=== PATIENT | male | born 1940 | race Caucasian/White ===

== ENCOUNTER 2018-07-09 23:54 | Inpatient (IN) | payer MEDICARE ==
[2018-07-10 00:27] LABS: #Basophils 0.1 thou/uL (0.0-0.2); #Eosinphils 0.2 thou/uL (0.0-0.7); #Lymphocytes 3.9 thou/uL (1.20-3.40); #Monocytes 1.1 thou/uL (0.11-0.59); #Neutrophils 4.7 thou/uL (1.40-6.50); %Basophils 0.8 % (0.0-1.0); %Eosinophils 2.4 % (0.0-10.0); %Monocytes 10.4 % (0.0-10.0); %Neutrophils 47.3 % (42.0-75.0); Mean Corpuscular HGB CONC 32.8 g/dL (32.0-36.0); Mean Corpuscular Hemoglobin 30.5 pg (27.0-31.0); Mean Platelet Volume 6.7 fL (7.4-10.4); Platelet Count 247 thou/uL (130-400); RBC Distribution Width 12.7 % (11.5-14.5); Red Blood Cell (RBC) Count 3.61 mill/uL (4.70-6.10)
[2018-07-10 00:53] LABS: ALT (SGPT) 10 U/L (8-55); AST (SGOT) 11 U/L (5-34); Albumin 3.7 g/dL (3.4-4.8); Alkaline Phosphatase 85 U/L (40-150); Anion Gap 11 mmol/L (10-20); BUN (Urea Nitrogen) 28 mg/dL (8.4-25.7); Bilirubin, Total 0.5 mg/dL (0.2-1.2); Calc. Creatinine Clearance 0 mL/min (70-130); Calcium 9.5 mg/dL (7.8-10.44); Carbon Dioxide 27 mmol/L (23-31); Chloride 99 mmol/L (98-107); Estimated GFR-MDRD 51; Globulin 2.8 g/dL (2.4-3.5); Glucose 121 mg/dL (83-110); Potassium 4.2 mmol/L (3.5-5.1); Protein, Total 6.5 g/dL (5.8-8.1); Sodium 133 mmol/L (136-145)
[2018-07-10 01:14] LABS: CKMB 2.6 ng/mL (0-6.6)
[2018-07-10 01:27] LABS: Clarity Clear (Clear); Leukocyte Negative (Negative); Nitrite Negative (Negative); Specific Gravity, Urine 1.007 (1.002-1.036)
[2018-07-10 01:28] LABS: Bilirubin Negative (Negative); Blood, Urine Negative (Negative); Glucose, Urine (Dipstick) Negative (Negative); Protein, Urine (Dipstick) Negative (Neg-Trace); Urobilinogen 0.2 mg/dL (0.2-1.0)
[2018-07-10] MEDS ORDERED: Nitroglycerin 2% Ointment 1 INCH/1 GM Packet ONE (01:56)
[2018-07-10] MEDS ORDERED: niCARdipine 20MG In NaCl 20 MG/200 ML BAG ONE (02:23)
[2018-07-10] MEDS ORDERED: Acetaminophen 325 MG TAB PO PRN (03:34)
[2018-07-10] MEDS ORDERED: Labetalol HCl 100 MG/20 ML VIAL SLOW IVP PRN (03:34)
[2018-07-10 03:47] LABS: Troponin I 0.218 ng/mL (< 0.028)
[2018-07-10] MEDS: Nitroglycerin 2% Ointment 1 INCH/1 GM Packet TOP SCH ×3 (06:45→21:27)
[2018-07-10 07:21] LABS: Troponin I 0.188 ng/mL (< 0.028)
--- NOTE | 2018-07-10 07:32 | ULT ---
CAROTID ULTRASOUND WITH GRIMM SCALE AND DOPPLER DUPLEX COLOR FLOW IMAGING SPECTRAL ANALYSIS PERFORMED: CLINICAL INDICATION: Syncope. FINDINGS: There is scattered mild to moderate atherosclerotic calcification of the carotid arteries. PEAK SYSTOLIC VELOCITY (CM/S): Right CCA 68 Left CCA 128 Right ICA 125 Left ICA 132 There is antegrade bilateral flow within the visualized bilateral vertebral arteries. IMPRESSION: On the basis of elevated velocities, there is evidence of moderate stenosis of each internal carotid artery (50-69%). POS: [facility]
--- NOTE | 2018-07-10 07:46 | RAD ---
AP view chest. HISTORY: Syncope. AP view chest mistreats ectasia and desiccation of the aorta. The lungs are well aerated. No evidence of active intrathoracic disease seen. No evidence of effusions, pneumonia or pneumothorax seen IMPRESSION: unremarkable AP view chest.
--- NOTE | 2018-07-10 08:01 | CT ---
PRELIMINARY REPORT/[facility]/EMERGENCY AFTER HOURS PROCEDURE: EXAM: CT Head Without Contrast EXAM DATE/TIME: 07/10/2018 12:57 AM CLINICAL HISTORY: 78 years old, male; Signs and symptoms; Syncope and collapse; Patient HX: Patient reports syncopal episode where he fell into his chair approximately 1 hour prior to arrival. Patient returned to baseline. States felt lightheaded and warm beforehand TECHNIQUE: Imaging protocol: Axial computed tomography images of the head/brain without contrast. COMPARISON: No relevant prior studies available. FINDINGS: Brain: Volume loss and chronic small vessel ischemic change. No brain edema. No intracranial hemorrhage. Ventricles: Normal. No ventriculomegaly. Bones/joints: Unremarkable. No acute fracture. Sinuses: Incidental sinus mucosal thickening present. No fluid levels to indicate sinusitis. Mastoid air cells: Visualized mastoid air cells are unremarkable. No mastoid effusion. Soft tissues: Unremarkable. IMPRESSION: No acute brain findings. Thank you for allowing us to participate in the care of your patient. Dictated and Authenticated by: Eliseo Guerrier MD 07/10/2018 1:27 AM Central Time ([place] & [place]) FINAL REPORT EMERGENCY AFTER HOURS CT BRAIN: Preliminary exam was performed by [facility]. No evidence of acute intracranial pathology seen. I concur with the dictation from [facility]. Transcribed Date/Time: 07/10/2018 9:10 AM
--- NOTE | 2018-07-10 08:30 | CON ---
DATE OF CONSULTATION: HISTORY OF PRESENT ILLNESS: Kervin Narvaez is an 78-year-old gentleman, who sees a [facility] physician, Dr. Vazquez. He presented to the ER with chest pain and shortness of breath. He said he was somewhat lightheaded. Had some difficulty breathing and hypertension. He denies any fever or chills. PAST MEDICAL HISTORY: Pertinent for hypertension. PAST SURGICAL HISTORY: Apparently, none. CHRONIC MEDICATION: Metoprolol 25 a day. TOBACCO: A pack a day. ALCOHOL: None. REVIEW OF SYSTEMS: Unremarkable. PHYSICAL EXAMINATION: GENERAL: Awake, alert, and responsive, in no distress. He is on a Cardene drip. VITAL SIGNS: Blood pressure 146/62, pulse is 80, respirations 18. CHEST: Decreased breath sounds. No wheezing. CARDIAC: Normal S1, S2. No gallops. ABDOMEN: No masses. LABORATORY DATA: D-dimer was elevated at 3.99. CT chest angio was done, negative for pulmonary emboli. Creatinine 1.35. White count 10,000, H and H unremarkable, platelet count is normal. His troponin was elevated. Carotid Doppler performed, which showed modest stenosis of the internal carotid arteries. ASSESSMENT: 1. History of presumed syncope. 2. Hypertension. 3. Tobacco abuse. PLAN: At this stage, his Cardene can be switched over to oral antihypertensive medication. Await input from Cardiology. Consider pulmonary function tests prior to discharge. Otherwise, Pulmonary and Critical Care will follow. Nothing additional to offer at this time. Supportive care. Consultation note, 70 minutes, 50% direct patient care. Job ID: [id number]
--- NOTE | 2018-07-10 08:39 | CT ---
PRELIMINARY REPORT/[facility]/EMERGENCY AFTER HOURS PROCEDURE: EXAM: CT Angiography Chest With Contrast EXAM DATE/TIME: 07/10/2018 1:43 AM CLINICAL HISTORY: 78 years old, male; Signs and symptoms; Shortness of breath; Patient HX: Patient reports syncopal episode where he fell into his chair approximately 1 hour prior to arrival. Patient returned to [facility]. States felt lightheaded and warm beforehand. States associated palpitations and difficulty breathing. Elevated d-dimer TECHNIQUE: Imaging protocol: Axial computed tomographic angiography images of the chest with intravenous contrast using CT angiography protocol. 3D rendering: MIP reconstructed images were created and reviewed. COMPARISON: No relevant prior studies available. FINDINGS: Pulmonary arteries: Normal. No pulmonary emboli. Aorta: Atherosclerotic aorta. No aneurysm or acute aortic syndrome. Thyroid: 3 cm mass in the left lobe of the thyroid gland. Lungs: Normal. No consolidation. No masses. Pleural space: Normal. No pneumothorax. No pleural effusion. Heart: Cardiomegaly. Mediastinum: Esophagus is unremarkable. Lymph nodes: Unremarkable. No enlarged lymph nodes. Bones/joints: Unremarkable. No acute fracture. Soft tissues: Unremarkable. IMPRESSION: 3 cm mass in the left lobe of the thyroid gland. Thank you for allowing us to participate in the care of your patient. Dictated and Authenticated by: Eliseo Guerrier MD 07/10/2018 2:05 AM Central Time ([place] & [place]) FINAL REPORT EMERGENCY AFTER HOURS CTA CHEST: HISTORY: Shortness of breath. Contrast enhanced CTA of the chest performed. 2-D and 3-D reconstruction images performed on an [employer] 3-D workstation. FINDINGS/IMPRESSION: No evidence of filling defects seen in the pulmonary arteries. The main pulmonary outflow diameter is dilated, measuring up to 3.7 cm. No evidence of pulmonary embo li seen. No evidence of pulmonary edema seen. Coronary artery calcification seen. Endovascular stent graft is seen in the abdominal aorta. Bilateral renal cortical cyst seen. Left thyroid soft tissue masses seen. I concur with the dictation from [facility]. Transcribed Date/Time: 07/10/2018 9:21 AM
[2018-07-10] MEDS: Famotidine 20 MG TAB PO SCH ×2 (08:42→21:26)
[2018-07-10] MEDS: Aspirin 325 mg Enteric Coated Tablet PO SCH (08:42)
[2018-07-10] MEDS: Enoxaparin Sodium 40 MG/0.4 ML SYRINGE SC SCH (08:42)
--- NOTE | 2018-07-10 10:39 | CON ---
DATE OF CONSULTATION: 07/10/2018 INDICATION FOR CONSULTATION: An 78-year-old patient, who was admitted with chest pain and shortness of breath. He has a history of COPD and has a history of hypertension. His enzymes were slightly elevated. We were asked to see him due for possible non-ST segment elevation myocardial infarction. HISTORY OF PRESENT ILLNESS: This is a very pleasant, but elderly 78-year-old gentleman, has a history of known peripheral vascular disease. He has history of hypertension, continues to smoke. 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 He had developed chest pain around midnight last night, presented to the emergency room. He also had an episode of chest pain about 4 to 5 years ago he said. He did have a stress test in 2016, which showed no evidence of ischemia. He was seen also by Dr. Mace at that time and underwent a graft for an infrarenal abdominal aortic aneurysm. He continues to live at home. He is a and he has some inability to ambulate very well. He says pretty much he just stays at home. He eats and sleeps. At this time, his chest pain has resolved. His blood pressure is under better control. He is on IV Cardene. He continues to have some decreased O2 saturations at times, but otherwise his O2 saturation seems to be doing well on nasal oxygen. The EKG shows no acute changes. His laboratory data shows a troponin I, which on admission was 0.234, has now decreased down to 0.188 and may be just a reflection of his significant hypertension. He certainly may have also underlying coronary artery disease. We will need to undergo repeat stress testing once the blood pressure becomes stable. PAST MEDICAL HISTORY: His past medical history is known for hypertension and COPD. He has an aortic abdominal aneurysm, for which he underwent endovascular repair in August of [address] Mace. He also has benign prostatic hypertrophy. He has undergone a left carotid endarterectomy in 2002. SOCIAL HISTORY: He is a . He has children, who are alive and well without heart disease. He continues to smoke a pack a day. He has no alcohol use. He previously worked in electronics. FAMILY HISTORY: Positive for CVA's. ALLERGIES: NONE. MEDICATIONS: His medications prior to admission included metoprolol. His medications at this time, he has been placed on; 1. Nicardipine. 2. Nitroglycerin. 3. Aspirin. 4. Lovenox. 5. Pepcid. 6. Tylenol. 7. Hydralazine. 8. Labetalol. REVIEW OF SYSTEMS: He has false teeth. He wears glasses to read. He has shortness of breath. He continues to smoke. Otherwise, 12-point review of systems is actually remarkably unremarkable for this elderly gentleman. PHYSICAL EXAMINATION: GENERAL: Reveals an elderly gentleman. VITAL SIGNS: Blood pressure at this time is 139/68 and early was 237/97, heart rate is 60, respiratory rate is 18, and O2 saturation is 100%. HEENT: Shows head to be normocephalic and atraumatic. NECK: He has bilateral carotid bruits. The left side is significantly worse than the right. He has well-healed surgical incision over the left carotid endarterectomy after a carotid endarterectomy was performed in the past. CHEST: He has decreased breath sounds throughout. CARDIOVASCULAR: Reveals a regular rate and rhythm with a soft systolic murmur at the upper sternal border. I do not hear any heaves or thrills. ABDOMEN: Shows the abdomen to be soft and nontender. He has bruits throughout the abdominal area. He also has bilateral femoral bruits. Femoral pulses are palpable; however, I cannot palpate popliteal or pedal pulses. He has no lower extremity edema. NEUROLOGIC: He appears to be relatively intact for someone of his age. He did not get out of the bed for further evaluation. SKIN: Warm and dry. DIAGNOSTIC DATA: EKG shows a normal sinus rhythm with no acute changes. Chest x-ray is unremarkable. CT of the brain was unremarkable. IMPRESSION AND PLAN: 1. Hypertensive episode, which is now under better improvement with Cardene. We will need to manage his medications, we would try to determine, which medications may be best for him to control his blood pressure. He previously just only on a beta roberth. This was apparently increased over the last couple days, but has not been successful in keeping the blood pressure under control. 2. History of abdominal aortic aneurysm, which was repaired in the past by a percutaneous graft. He may need to undergo further evaluation. This was performed in 2016. 3. Chronic obstructive pulmonary disease. This will be dealt by the town administrator. They have already seen the patient. He has continued tobacco abuse. He will be advised to stop smoking. However, he has smoked most of his life and now 78 years old, kindly unlikely that he will stop smoking despite being advised to do this. With his chest discomfort and the slight abnormalities of the cardiac enzymes, which did not necessarily indicate myocardial infarction, but could be most likely due to demand ischemia associated with hypertension. We would advise he undergo a stress test once the blood pressure is under better control. 4. Carotid bruits. He has undergone a carotid endarterectomy in 2002. He has been followed by Dr. Mace in the past. His most recent carotid evaluation was in 2016 prior to undergoing the abdominal aortic aneurysm repair. At that time, he did have the right carotid, which was less than 50% occluded. The left carotid did not show any significant stenosis, but the left external carotid artery has significant stenosis. This can be dealt with also by repeating the carotid Doppler. 5. Prostate hypertrophy. Appears to be relatively stable at this time. I do not see that he is taking any medicines. However, he may need to follow up with his primary care doctor or urologist. We are more than happy to continue to follow the patient with you and further recommendation will follow after echocardiogram is reviewed and also stress testing. Job ID: [id number] CODEY
[2018-07-10] MEDS: hydrALAZINE 20 MG/ML VIAL SLOW IVP PRN (13:30)
[2018-07-10] MEDS ORDERED: Amlodipine 5 MG TAB PO SCH (14:15)
[2018-07-10] MEDS ORDERED: ISOVUE-370 76%-LOCM 1 ML ONE (16:50)
[2018-07-11] MEDS: Nitroglycerin 2% Ointment 1 INCH/1 GM Packet TOP SCH ×3 (05:38→22:49)
[2018-07-11 05:43] LABS: #Eosinphils 0.1 thou/uL (0.0-0.7); #Lymphocytes 2.5 thou/uL (1.20-3.40); #Monocytes 1.1 thou/uL (0.11-0.59); #Neutrophils 7.4 thou/uL (1.40-6.50); %Basophils 0.3 % (0.0-1.0); %Eosinophils 1.1 % (0.0-10.0); %Lymphocytes 22.2 % (21.0-51.0); %Monocytes 10.2 % (0.0-10.0); %Neutrophils 66.3 % (42.0-75.0); Hemoglobin 10.1 g/dL (14.0-18.0); Mean Corpuscular HGB CONC 32.5 g/dL (32.0-36.0); Mean Corpuscular Hemoglobin 29.9 pg (27.0-31.0); Mean Corpuscular Volume 92.3 fL (78.0-98.0); Mean Platelet Volume 7.2 fL (7.4-10.4); Platelet Count 249 thou/uL (130-400); RBC Distribution Width 12.9 % (11.5-14.5); Red Blood Cell (RBC) Count 3.38 mill/uL (4.70-6.10); White Blood Cell (WBC) Count 11.1 thou/uL (4.8-10.8)
[2018-07-11 06:09] LABS: Anion Gap 10 mmol/L (10-20); BUN (Urea Nitrogen) 28 mg/dL (8.4-25.7); Calc. Creatinine Clearance 53 mL/min (70-130); Calcium 9.1 mg/dL (7.8-10.44); Carbon Dioxide 24 mmol/L (23-31); Cardiac Risk 3.7 (Less than 4.5); Chloride 105 mmol/L (98-107); Cholesterol 139 mg/dl (< 200 Desired); Estimated GFR-MDRD 57; Glucose 106 mg/dL (83-110); HDL Cholesterol 38 mg/dL (>60 Neg Risk); LDL Cholesterol, Calculated 89 mg/dL; Potassium 4.2 mmol/L (3.5-5.1); Sodium 135 mmol/L (136-145); Triglycerides 58 mg/dL (Less than 150)
[2018-07-11] MEDS: Enoxaparin Sodium 40 MG/0.4 ML SYRINGE SC SCH (07:39)
[2018-07-11] MEDS: Amlodipine 5 MG TAB PO SCH (07:39)
[2018-07-11] MEDS: Famotidine 20 MG TAB PO SCH ×3 (07:39→20:45)
[2018-07-11] MEDS: Aspirin 325 mg Enteric Coated Tablet PO SCH (07:39)
--- NOTE | 2018-07-11 07:53 | PRG ---
DATE OF SERVICE: 07/11/2018 SUBJECTIVE: The patient is seen and examined at the bedside. He is in some respiratory distress this morning. He had a decent night. He eats. He has good appetite. He does not have any chest pain. OBJECTIVE: VITAL SIGNS: Blood pressure is 160/45, pulse is 70, respiratory rate is 21, O2 saturation is 92%. HEENT: His head is atraumatic, normocephalic. Eyes are PERRLA. Sclerae are nonicteric. Oral mucosa is moist. NECK: Supple. LUNGS: Bilateral rales and wheezes present. HEART: S1, S2 normal. No S3. No S4. ABDOMEN: Soft, nontender, mildly obese. Bowel sounds are present. No organomegaly. EXTREMITIES: No clubbing, cyanosis, or edema. NEUROLOGICAL EXAMINATION: He is alert and oriented x4. There is no any motor or sensory deficit present. Cranial nerves are intact. LABORATORY DATA: Labs showed white count of 11.1, hemoglobin 10.2, hematocrit 31.1, platelet count is 249,000. Sodium of 135, potassium 4.2, chloride 105, CO2 of 24, BUN 28, creatinine 1.22. The rest of chemistry is within normal limits. Two sets of troponin I 0.218 and 0.188. Triglycerides 58, total cholesterol 139, LDL 89, HDL 38. Echocardiogram showed good LVEF of 60% to 65% and moderate to severely dilated left atrium with some mild enlargement of the right atrium and mitral regurgitation and mild aortic regurgitation along with trace of tricuspid regurgitation. IMPRESSION: 1. Syncope. It is unclear whether this was related to high dose of use of beta-roberth or there was some other etiology. Apparently, his beta-roberth was increased. He was started on beta roberth just prior to the episode of syncope after he took his first dose of beta-roberth. 2. Chronic obstructive pulmonary disease. He started wheezing this morning. He takes some DuoNebs at home as needed. We are going to start him on DuoNebs q.4 hours p.r.n. as we speak. 3. History of abdominal aortic aneurysm and evidence of bilateral carotid artery stenosis on recent carotid Doppler. We are going to start him on atorvastatin 40 mg at bedtime along with aspirin. PLAN: Plan is to increase his amlodipine to 10 mg this morning, so we can take him off Cardene drip. Cardiology will make the recommendations regarding hypertension. use of beta-roberth in this COPD patient is appropriate. We will try to wean him off his Cardene drip. If his respiratory status improves, we going to move him out to Telemetry floor, if beds available. He feels better. We will stress his heart according to Cardiology recommendation. We will continue DVT prophylaxis with SCDs and Lovenox. Job ID: [id number]
--- NOTE | 2018-07-11 08:32 | PRG ---
DATE OF SERVICE: 07/11/2018 SUBJECTIVE: Kervin Narvaez, this morning, is awake, alert, and responsive. No pain. No discomfort. Still on a Cardene drip. OBJECTIVE: VITAL SIGNS: Blood pressure 160/49, pulse of 76, sats 97 on 2 L, and respiratory rate 18. CHEST: No wheezing. CARDIAC: Normal S1 and S2. No gallops. ABDOMEN: No masses. LABORATORY DATA: Creatinine 1.2. Otherwise, labs unremarkable. White count normal. ASSESSMENT: 1. Syncope, etiology unclear. 2. Hypertension. PLAN: Restart home medication. Continue supportive care. We will follow while in the ICU. Job ID: [id number]
[2018-07-11] MEDS ORDERED: Metoprolol Tartrate 50 MG TAB PO SCH (09:00)
[2018-07-11] MEDS ORDERED: Amlodipine 5 MG TAB PO SCH (09:00)
--- NOTE | 2018-07-11 13:21 | PRG ---
DATE OF SERVICE: 07/10/2018 SUBJECTIVE: The patient is seen and examined at the bedside. OBJECTIVE: VITAL SIGNS: His blood pressure is 139/68, pulse is 60, respirations 16, and O2 saturation is 99% on room air. HEENT: His head is atraumatic and normocephalic. Sclerae nonicteric. Oral mucosa is moist. NECK: Supple. LUNGS: Clear. HEART: S1, S2 normal. No S3. No S4. No any murmur. ABDOMEN: Soft, nontender, nondistended. Bowel sounds are present. No organomegaly. EXTREMITIES: No clubbing, cyanosis, or edema. NEUROLOGIC: He follows my commands. He moves his all four extremities. There is no any sensory or motor deficits present. Cranial nerves are intact. LABORATORY DATA: White count of 10.0, hemoglobin 11.0, hematocrit 33.6, platelet count is 247,000. Sodium 133, potassium 4.2, chloride 99, CO2 of 27, BUN 28, creatinine 1.35, glucose 121. The rest of chemistry within normal limits. Troponin I 0.218. Urinalysis within normal limits. IMPRESSION: 1. Syncope. 2. Chronic obstructive pulmonary disease. 3. Urgency. 4. History of abdominal aortic aneurysm. PLAN: We are awaiting for echocardiogram to come back. We will try to wean him off his Cardene drip. The only medications he was taking at home is beta roberth, which is not the best choice for somebody with COPD. Carotid Doppler, some significant stenosis in both internal carotid arteries. He will need statin along with his aspirin. Job ID: [id number]
[2018-07-11] MEDS: PROVENTIL INHALER 6.7 G (200 INHALATIONS) INH PRN (15:05)
[2018-07-11] MEDS: hydrALAZINE 20 MG/ML VIAL SLOW IVP PRN ×2 (15:18→23:25)
[2018-07-11] MEDS: methylPREDNISolone Sod Succ 40 MG VIAL IVP SCH ×2 (15:48→23:26)
[2018-07-11] MEDS: Bacteriostatic Water 30 ML VIAL FS PRN ×2 (15:48→23:26)
[2018-07-11] MEDS ORDERED: Furosemide 40 MG/4 ML VIAL ONE (16:56)
[2018-07-11] MEDS ORDERED: Furosemide 40 MG/4 ML VIAL SLOW IVP SCH (17:00)
[2018-07-11 20:04] LABS: Actual Bicarbonate (HCO3a) 17.9 mEq/L (22-28); Base Excess (BEa) -4.6 mEq/L (-2.0 to +3.0); Carboxyhemoglobin (COHb) 0.7 gm% (0.0-3.0); Hemoglobin (Hb) 11.3 g/dL (14.0-18.0); O2 Tension (PaO2) 73.8 mmHg (> 60.0); Potassium - ABG Lab 3.92 mmol/L (3.70-5.30); pH, Arterial 7.46 (7.35-7.45)
[2018-07-11 20:08] LABS: CO2 Tension 25.5 mmHg (35.0-45.0); Puncture Site RBRACH
[2018-07-11 20:09] LABS: ALV-art Gradient 93.965 (0-20)
[2018-07-11] MEDS: Atorvastatin Calcium 40 MG TAB PO SCH ×2 (20:40→20:45)
[2018-07-11] MEDS ORDERED: niCARdipine HCl 50 MG in Sodium Chloride 0.9% 250 ML 250 ML IVPB SCH (21:15)
[2018-07-11] MEDS: niCARdipine HCl 50 MG in Sodium Chloride 0.9% 250 ML 230 ML IVPB SCH (22:49)
--- NOTE | 2018-07-11 23:10 | HP ---
PRIMARY CARE PHYSICIAN: Dr. Deep Vazquez. CHIEF COMPLAINT: "I passed out." HISTORY OF PRESENT ILLNESS: Mr. Narvaez is a pleasant 78-year-old gentleman, who has a history of hypertension as well as cerebrovascular disease. He was in his usual state of health until earlier today when he says he was about to go to the bathroom, he sat down in a chair and then suddenly his vision went black. He says that following that he passed out. He is not very sure how long he was unconscious, but says it was probably about an hour, but he is not sure. Apparently, his brother was there, noticed that and called for an ambulance to bring him to the hospital. Prior to that, he denies having any chest pain or shortness of breath. He denies feeling dizzy or lightheaded. He denies any palpitations. No nausea or vomiting. He denies any seizure-like activity. He also denies any swelling in his legs. He had no PND or orthopnea. Currently, he says he does not feel very bad. He was evaluated in the ER and found to have an elevated troponin and for this reason, he is being admitted. REVIEW OF SYSTEMS: All systems were reviewed and are negative except for that mentioned in the history of present illness. PAST MEDICAL HISTORY: Significant for hypertension, cerebrovascular disease, peripheral vascular disease, and tobacco abuse. PAST SURGICAL HISTORY: He had a stent to his aorta as well as a left carotid endarterectomy. ALLERGIES: NO KNOWN DRUG ALLERGIES. SOCIAL HISTORY: He is . He has 6 children. He smokes about a pack a day for the last 60 years. He denies any alcohol use and he would like to be a full code. FAMILY HISTORY: Significant for diabetes mellitus. CURRENT MEDICATIONS: Metoprolol 100 mg daily. PHYSICAL EXAMINATION: GENERAL: He is alert and oriented. He is in no acute distress. He is well developed and well nourished. He was a bit disheveled in appearance. VITAL SIGNS: Blood pressure was 206/73, heart rate 83, respiratory rate of 18, temperature is 97.7. HEENT: Pupils are equal, round, and reactive to light. Extraocular muscles are intact. Sclerae anicteric. Throat, there is no erythema, no exudates. NECK: He had bruits or could be a transmitted murmur. PULMONARY: His lungs are clear to auscultation bilaterally. No wheezing. No rales. CARDIOVASCULAR: He has a normal S1 and S2. He had a grade 2/6 systolic murmur, which radiated to the carotids. His abdomen was soft, it was nontender, nondistended. Positive for bowel sounds. There is no rebound or guarding. No organomegaly. EXTREMITIES: There is no edema. NEUROLOGIC: His cranial nerves 2 through 12 are intact. His muscle strength is 5/5 in both his upper and lower extremities. SKIN AND INTEGUMENT: He has a pedunculated lesion on the dorsum of the left hand with some irregular borders. On his lower extremities, he had some changes consistent with chronic venous stasis. LABORATORY DATA AND IMAGING: His white blood cell count was 10, hemoglobin 11, hematocrit 33.6, and platelet count was 246. Sodium 133, potassium 4.2, chloride is 99, CO2 is 27, BUN of 28, creatinine 1.35, glucose is 121. Troponin is 0.234. Urinalysis was negative. D-dimer was 3.99. He had an EKG, which was sinus rhythm, the rate is 69. He had some voltage criteria for LVH as well as left anterior fascicular block. This is by my reading. CT scan of the head was negative. CT angiogram was pending. Chest x-ray showed some changes consistent with COPD with flattening of the diaphragm, normal heart size and no infiltrates. ASSESSMENT: This is a pleasant 78-year-old gentleman, who presents to the emergency room after having a syncopal episode and likely represents an acute coronary syndrome. He has elevated troponin and his EKG is abnormal. Pulmonary embolism has yet to be ruled out however, therefore for: 1. Syncope. He will be admitted to the telemetry. We will continue to trend his cardiac enzymes and get an echo. Place him on nitrates as tolerated. Treat him with aspirin and beta-roberth as tolerated and get a lipid panel. 2. For acute coronary syndrome, we will continue the same as above. 3. Hypertension. This has been poorly controlled even after medication given in the ER. For this reason, we will start him on a Cardene drip. 4. For the pedunculated mass on the left hand, this was discussed with the patient and I recommend that he see a bait painter as an outpatient and if possible, this could be biopsied during his hospital stay if there is someone available to do this. 5. He will be placed on deep vein thrombosis and gastrointestinal prophylaxis. Job ID: [id number]
[2018-07-12] MEDS: niCARdipine HCl 50 MG in Sodium Chloride 0.9% 250 ML 230 ML IVPB SCH (05:59)
[2018-07-12] MEDS: Nitroglycerin 2% Ointment 1 INCH/1 GM Packet TOP SCH ×3 (06:07→22:53)
[2018-07-12] MEDS: methylPREDNISolone Sod Succ 40 MG VIAL IVP SCH ×3 (06:08→17:59)
[2018-07-12] MEDS: Bacteriostatic Water 30 ML VIAL FS PRN ×3 (06:08→17:59)
[2018-07-12] MEDS: PROVENTIL INHALER 6.7 G (200 INHALATIONS) INH PRN (06:45)
--- NOTE | 2018-07-12 07:18 | RAD ---
Chest AP view INDICATION: Respiratory distress COMPARISON: Prior exam dated July 10, 2018 FINDINGS: Lungs:There is bilateral perihilar interstitial and airspace opacities suspicious for edema. Cardiac silhouette pulmonary vasculature:There is worsening [id number] cardiomegaly and mild to moderate pulmonary vascular congestion. Pleural spaces:There are tiny bilateral pleural effusions. No pneumothorax. Upper abdomen:No abnormality seen. Osseous structures: No acute osseous abnormality. IMPRESSION: Findings of mild CHF. Recommend continued radiographic follow-up.
--- NOTE | 2018-07-12 08:28 | PDOC.CTH ---
Cardiology Progress Note - Subjective The pt seen and examined. No overnight events. No cardiac complaints. Complains of generalized weakness. - Objective Vital Signs Temp Pulse Resp BP Pulse Ox 07/12/18 08:00 99.1 F 07/12/18 07:45 25 H 93 L 07/12/18 06:46 89 07/12/18 06:38 90 30 H 94 L 07/12/18 04:00 98.3 F 07/12/18 02:25 93 20 99 07/12/18 00:00 97.9 F 07/11/18 23:25 91 180/51 H 07/11/18 22:17 84 23 H 95 07/11/18 21:00 100.3 F H Weight 171 lb 8.314 oz 07/11/18 07/12/18 07/13/18 06:59 06:59 06:59 Intake Total 2574 500 100 Output Total 1615 1400 55 Balance 959 -900 45 - Physical Examination General/Neuro: alert & oriented x3 Neck: no JVD present Lungs: other: (coarses and diminished at bases) Heart: RRR Abdomen: soft Extremities: other: (no edema) - Telemetry Telemetry Rhythm: SR with PACs - Labs Result Diagrams: 07/12/18 08:47 07/12/18 08:47 Troponin/CKMB CK-MB (CK-2) 2.6 ng/mL (0-6.6) 07/10/18 00:18 Troponin I 0.188 ng/mL (< 0.028) H 07/10/18 06:42 - Assessment/Plan 1. HTN urgency - stable with Cardene drip; Change Metoprolol to Coreg due to hx of COPD; start Lisinopril 20mg BID from this AM; may start Hydralazine or Isosorbide 2. S/p syncopal episode - possible vesovagal; Cont. to monitor on tele 3. COPD - stable with NC; 4. Lt thyroid mass 5. AAA wtih hx of endovascular repair in 2015 6. Lt CEA in 2002 7. Mild Acute on Chronic Diastolic HF - received Lasix IV x1 last night MAR reviewed * Echo on 07/10/2018 with EF 60-65%, ERA, mild MR and AR, trace TR, and mod- severely dilated LA Pt. seen and eval. by me. I agree with the A/P by the FINISHED GOODS INSPECTOR. Chest clear. RRR Okay to transfer to tele. Review of Systems - Review of Systems Constitutional: reports: weakness EENTM: reports: no symptoms reported Respiratory: reports: shortness of breath Cardiac (ROS): reports: no symptoms reported ABD/GI: reports: no symptoms reported : reports: no symptoms reported Musculoskeletal: reports: no symptoms reported
[2018-07-12] MEDS ORDERED: Furosemide 40 MG/4 ML VIAL SLOW IVP SCH (08:30)
[2018-07-12] MEDS ORDERED: Carvedilol 6.25 MG TAB PO SCH (09:00)
[2018-07-12] MEDS ORDERED: Metoprolol Tartrate 50 MG TAB PO SCH (09:00)
[2018-07-12 09:01] LABS: #Lymphocytes 0.8 thou/uL (1.20-3.40); #Monocytes 0.5 thou/uL (0.11-0.59); %Basophils 0.2 % (0.0-1.0); %Eosinophils 0.1 % (0.0-10.0); %Lymphocytes 4.8 % (21.0-51.0); %Monocytes 2.8 % (0.0-10.0); %Neutrophils 92.2 % (42.0-75.0); Hemoglobin 10.2 g/dL (14.0-18.0); Mean Corpuscular Hemoglobin 30.4 pg (27.0-31.0); Mean Corpuscular Volume 92.2 fL (78.0-98.0); Mean Platelet Volume 7.3 fL (7.4-10.4); Platelet Count 259 thou/uL (130-400); RBC Distribution Width 13.2 % (11.5-14.5); Red Blood Cell (RBC) Count 3.34 mill/uL (4.70-6.10); White Blood Cell (WBC) Count 16.3 thou/uL (4.8-10.8)
[2018-07-12] MEDS: ALPRAZolam 0.25 MG TAB PO PRN ×2 (09:19→16:55)
[2018-07-12] MEDS: Lisinopril 20 MG TAB PO SCH ×2 (09:19→21:09)
[2018-07-12] MEDS: Enoxaparin Sodium 40 MG/0.4 ML SYRINGE SC SCH (09:19)
[2018-07-12] MEDS: Famotidine 20 MG TAB PO SCH ×2 (09:20→21:09)
[2018-07-12] MEDS: Aspirin 325 mg Enteric Coated Tablet PO SCH (09:20)
[2018-07-12] MEDS: Amlodipine 5 MG TAB PO SCH (09:20)
--- NOTE | 2018-07-12 09:35 | PRG ---
DATE OF SERVICE: 07/12/2018 SUBJECTIVE: This morning is awake, alert, responsive, very anxious. He had difficulty breathing last night. It is unclear what transpired there. He was wheezing and coughing for a brief period of time. He was placed on noninvasive ventilation to which apparently he did well. He was given some steroids and frequent neb treatments. OBJECTIVE: GENERAL: This morning, he still appears very anxious. VITAL SIGNS: His systolic blood pressure is elevated about 70, but his 20 diastolic is only 49, large pulse pressure. Otherwise, his temperature is 99, blood pressure 110/68 at 8 a.m. in the morning, respirations 18. CHEST: Decreased breath sounds. Minimal wheezing. CARDIAC: Normal S1 and S2. No gallops. ABDOMEN: No masses. LABORATORY DATA: Blood gases show respiratory alkalosis. IMAGING STUDIES: Chest x-ray with questionable right-sided infiltrate. IMPRESSION: Respiratory failure, syncope, hypertension, major anxiety, former smoker. PLAN: Continue steroids, antibiotics, PT and supportive care. Blood pressure has been adjusted by primary care physician. Continue observation in the ICU. Job ID: [id number]
--- NOTE | 2018-07-12 09:54 | PRG ---
DATE OF SERVICE: 07/12/2018 SUBJECTIVE: The patient is seen and examined at the bedside. He was short of breath yesterday and he required BiPAP. He stayed on BiPAP all night. The bypass is off this morning. He is able to eat his breakfast, but he still requires Cardene drip at 9. OBJECTIVE: VITAL SIGNS: Blood pressure is 110/68, pulse is 88, respiratory rate is 26, O2 saturation is to be checked as we speak. He is afebrile. HEENT: His eyes are PERRLA. Sclerae are nonicteric. Oral mucosa is moist. NECK: Supple. LUNGS: Bilateral rales at both bases. HEART: S1 and S2 normal. No S3. No S4. ABDOMEN: Soft, nontender, nondistended. EXTREMITIES: No clubbing, cyanosis, or edema. NEUROLOGICAL: He had some altered mental status during the night, but he seems to be doing better this morning. IMAGING STUDIES: X-ray of his chest done this morning showed mild CHF. IMPRESSION: 1. Syncope. 2. Chronic obstructive pulmonary disease . 3. Hypertension. 4. History of abdominal aortic aneurysm. Positive findings for atherosclerotic disease in both internal carotid arteries per carotid Doppler. PLAN: The patient is still on Cardene drip despite of using 40 mg of IV Lasix yesterday and amlodipine 10 mg once a day and 50 mg of metoprolol once a day. He was started on the beta-roberth yesterday by music intern. Also, he was placed on steroids yesterday for his lungs and congestion, and he was placed on BiPAP. We will see how he does on nasal cannula this morning. We will have Cardiology make some additional adjustments to his blood pressure medications, so we can take him off his Cardene drip, his IV steroids and DuoNeb's. He will probably need some diuresis. We will check his BNP, and we will continue DVT prophylaxis. Job ID: [id number]
[2018-07-12 11:00] LABS: AST (SGOT) 23 U/L (5-34); Albumin 3.7 g/dL (3.4-4.8); Alkaline Phosphatase 67 U/L (40-150); Anion Gap 17 mmol/L (10-20); BUN (Urea Nitrogen) 45 mg/dL (8.4-25.7); Bilirubin, Total 1.3 mg/dL (0.2-1.2); Calc. Creatinine Clearance 42 mL/min (70-130); Calcium 9.3 mg/dL (7.8-10.44); Carbon Dioxide 17 mmol/L (23-31); Chloride 104 mmol/L (98-107); Estimated GFR-MDRD 43; Globulin 3.1 g/dL (2.4-3.5); Glucose 204 mg/dL (83-110); Potassium 3.7 mmol/L (3.5-5.1); Protein, Total 6.8 g/dL (5.8-8.1); Sodium 134 mmol/L (136-145)
[2018-07-12 11:11] LABS: ALT (SGPT) 14 U/L (8-55)
[2018-07-12] MEDS ORDERED: Furosemide 20 MG/2 ML VIAL SLOW IVP SCH (16:00)
[2018-07-12] MEDS: Carvedilol 6.25 MG TAB PO SCH (16:46)
[2018-07-12] MEDS: Atorvastatin Calcium 40 MG TAB PO SCH (21:09)
[2018-07-13] MEDS: Bacteriostatic Water 30 ML VIAL FS PRN ×4 (00:25→17:49)
[2018-07-13] MEDS: methylPREDNISolone Sod Succ 40 MG VIAL IVP SCH ×4 (00:25→17:49)
[2018-07-13] MEDS: ALPRAZolam 0.25 MG TAB PO PRN (00:56)
[2018-07-13] MEDS: Nitroglycerin 2% Ointment 1 INCH/1 GM Packet TOP SCH ×3 (06:21→21:41)
[2018-07-13] MEDS: Carvedilol 6.25 MG TAB PO SCH ×2 (08:30→17:49)
[2018-07-13] MEDS: Famotidine 20 MG TAB PO SCH (08:31)
[2018-07-13] MEDS: Aspirin 325 mg Enteric Coated Tablet PO SCH (08:31)
[2018-07-13] MEDS: Furosemide 20 MG TAB PO SCH (08:31)
[2018-07-13] MEDS: Enoxaparin Sodium 40 MG/0.4 ML SYRINGE SC SCH (08:31)
[2018-07-13] MEDS: Amlodipine 5 MG TAB PO SCH (08:31)
[2018-07-13] MEDS: Lisinopril 20 MG TAB PO SCH (08:31)
--- NOTE | 2018-07-13 09:45 | PRG ---
DATE OF SERVICE: 07/13/2018 SUBJECTIVE: Kervin Narvaez, this morning, is awake, responsive, confused. He is less short of breath. His BNP was markedly elevated. OBJECTIVE: VITAL SIGNS: His sats are 93% on 3 L, blood pressure 129/50, respiratory rate 18, pulse 80. CHEST: Decreased breath sounds, bilateral wheezing. CARDIAC: Normal S1 and S2. No gallops. ABDOMEN: No masses. LABORATORY DATA: Creatinine 1.55 and BUN is elevated at 45, slightly azotemic. Sodium 134. IMPRESSION: Congestive heart failure, chronic obstructive pulmonary disease, encephalopathy, azotemia. PLAN: Continue steroids. Continue neb treatments. Continue low-dose diuretics. PT, supportive care will follow. Job ID: [id number]
[2018-07-13 11:42] LABS: Hemoglobin 9.6 g/dL (14.0-18.0); Mean Corpuscular HGB CONC 32.6 g/dL (32.0-36.0); Mean Corpuscular Hemoglobin 30.3 pg (27.0-31.0); Mean Corpuscular Volume 92.7 fL (78.0-98.0); Mean Platelet Volume 7.3 fL (7.4-10.4); Platelet Count 220 thou/uL (130-400); RBC Distribution Width 13.2 % (11.5-14.5); Red Blood Cell (RBC) Count 3.17 mill/uL (4.70-6.10); White Blood Cell (WBC) Count 22.6 thou/uL (4.8-10.8)
--- NOTE | 2018-07-13 11:49 | PRG ---
DATE OF SERVICE: 07/13/2018 SUBJECTIVE: The patient is seen examined at bedside. He is doing quite well, but I think he is affected by Xanax he received last night and he is somewhat comatose and less responsive than he usually is. OBJECTIVE: VITAL SIGNS: Blood pressure is 149/61, pulse is 79, respirations 22, and O2 saturation is 93%. HEENT: His head is atraumatic and normocephalic. Sclerae are nonicteric. Oral mucosa is moist. NECK: Supple. LUNGS: Bilateral rales at both bases present. HEART: S1 and S2 normal. No S3. No S4. ABDOMEN: Soft, obese, and nontender. EXTREMITIES: No clubbing, cyanosis, or edema. NEUROLOGIC: He follows my commands, but he is kind of sluggish and slightly different than what he was yesterday. He moves his all 4 extremities. Babinski sign is negative on both lower extremities. LABORATORY DATA: CBC is pending and BMP is pending. IMPRESSION: 1. Syncope. 2. Chronic obstructive pulmonary disease exacerbation. 3. Hypertension. 4. History of abdominal aortic aneurysm. 5. Encephalopathy. 6. Suspected cardiac diastolic dysfunction. PLAN: Plan is to continue his steroids. Continue his current regimen. He was started on levofloxacin by outside plant engineer. He is off Cardene drip. I am going to stop benzodiazepines as this might cause additional changes in his mental status. Evaluate his situation in few hours. Job ID: [id number]
[2018-07-13 12:27] LABS: Band 3 % (5-11); Bite Cells SLIGHT = 2-5 cells (100X) (0-1/hpf); Burr Cells SLIGHT = 2-5 cells (100X) (0-1/hpf); Lymphocytes 7 % (21-51); MDiff Complete? YES; Monocytes 1 % (0-10); Neutrophil 89 % (42-75); Platelet Morphology Comment Appears Adequate; Polychromasia SLIGHT = 2-3 cells (100X) (0-2/hpf)
--- NOTE | 2018-07-13 16:45 | PDOC.CTH ---
Cardiology Progress Note - Subjective Pt. seen and eval. by me. No new cardiac events over night. - Objective Vital Signs Temp Pulse Resp BP Pulse Ox 07/13/18 16:00 98.2 F 07/13/18 14:17 84 24 H 07/13/18 12:00 98.1 F 07/13/18 11:45 80 25 H 99 07/13/18 08:31 79 147/59 H 07/13/18 08:30 147/59 H 07/13/18 08:00 98.5 F 98 07/13/18 07:32 93 L 07/13/18 07:30 79 18 93 L Weight 171 lb 8.314 oz 07/12/18 07/13/18 07/14/18 06:59 06:59 06:59 Intake Total 500 975 350 Output Total 1400 1180 925 Balance -732 -159 -578 - Physical Examination General/Neuro: NAD Neck: no JVD present Lungs: other: (bilat. rales/rhonchi and wheeze.) Heart: RRR Abdomen: soft - Telemetry Telemetry Rhythm: NSR - Labs Result Diagrams: 07/13/18 11:25 07/12/18 08:47 Troponin/CKMB CK-MB (CK-2) 2.6 ng/mL (0-6.6) 07/10/18 00:18 Troponin I 0.188 ng/mL (< 0.028) H 07/10/18 06:42 - Assessment/Plan 1. HTN urgency - stable with Cardene drip; Change Metoprolol to Coreg due to hx of COPD; started Lisinopril 20mg BID ; may start Hydralazine or Isosorbide 2. S/p syncopal episode - possible vesovagal; Cont. to monitor on tele 3. COPD - stable with NC; elevated WBC. 4. Lt thyroid mass 5. AAA wtih hx of endovascular repair in 2015 6. Lt CEA in 2002 7. Mild Acute on Chronic Diastolic HF - received Lasix IV x1 last night 8. Confusion,dementia. MAR reviewed * Echo on 07/10/2018 with EF 60-65%, ERA, mild MR and AR, trace TR, and mod- severely dilated LA
[2018-07-13] MEDS: Atorvastatin Calcium 40 MG TAB PO SCH (21:41)
[2018-07-14] MEDS: methylPREDNISolone Sod Succ 40 MG VIAL IVP SCH ×2 (00:50→04:53)
[2018-07-14] MEDS: Nitroglycerin 2% Ointment 1 INCH/1 GM Packet TOP SCH (04:53)
[2018-07-14 05:14] LABS: Anion Gap 11 mmol/L (10-20); BUN (Urea Nitrogen) 68 mg/dL (8.4-25.7); Calc. Creatinine Clearance 46 mL/min (70-130); Calcium 9.2 mg/dL (7.8-10.44); Carbon Dioxide 24 mmol/L (23-31); Chloride 105 mmol/L (98-107); Estimated GFR-MDRD 48; Glucose 150 mg/dL (83-110); Potassium 4.1 mmol/L (3.5-5.1); Sodium 136 mmol/L (136-145)
[2018-07-14] MEDS: Amlodipine 5 MG TAB PO SCH (07:53)
[2018-07-14] MEDS: Aspirin 325 mg Enteric Coated Tablet PO SCH (07:54)
[2018-07-14] MEDS: Furosemide 20 MG TAB PO SCH (07:54)
[2018-07-14] MEDS: Carvedilol 6.25 MG TAB PO SCH ×3 (07:54→17:37)
[2018-07-14] MEDS: Enoxaparin Sodium 40 MG/0.4 ML SYRINGE SC SCH (07:54)
[2018-07-14] MEDS: Lisinopril 20 MG TAB PO SCH (07:54)
--- NOTE | 2018-07-14 08:46 | PRG ---
DATE OF SERVICE: 07/14/2018 SUBJECTIVE: This morning, he is doing better. He is less short of breath, less cough, less encephalopathic. No wheezing. OBJECTIVE: VITAL SIGNS: Initial blood pressure is 143/100, pulse is 120, temperature is 98, saturations are 96% on 2 L. His I's and O's are inconsistently negative. CHEST: Decreased breath sounds. No wheezing. CARDIAC: Normal S1 and S2. Negative mass. LABORATORY DATA: White count 22,000. Lytes are normal. BUN and creatinine are worsened with a creatinine of 1.4 and a BUN is 68, suggesting he maybe prerenal. IMPRESSION: 1. Congestive heart failure, diastolic dysfunction. 2. Possible pneumonia with presyncope, worsening renal failure. PLAN: We will discontinue Lasix and switch over to oral antibiotics. Prednisone, PT. Transfer to Telemetry. We will follow. Job ID: [id number] [facility] [place] [facility]
[2018-07-14] MEDS ORDERED: Carvedilol 6.25 MG TAB PO SCH ×2 (09:13→09:45)
--- NOTE | 2018-07-14 09:19 | PDOC.CTH ---
Cardiology Progress Note - Subjective The pt seen and examined. No overnight events. No cardiac complaints. Several episodes of bradycardia. - Objective Vital Signs Temp Pulse Resp BP Pulse Ox 07/14/18 08:00 98.1 F 96 07/14/18 07:54 142/48 H 07/14/18 07:53 90 134/60 07/14/18 07:21 94 L 07/14/18 07:19 81 27 H 94 L 07/14/18 04:00 98.5 F 07/14/18 02:32 77 22 H 92 L 07/14/18 00:00 98.4 F 07/13/18 22:36 71 24 H 90 L Weight 171 lb 8.314 oz 07/13/18 07/14/18 07/15/18 06:59 06:59 06:59 Intake Total 975 800 200 Output Total 1180 1965 100 Balance -205 -1165 100 - Physical Examination General/Neuro: alert & oriented x3 Neck: no JVD present Lungs: CTA (diminished at bases) Heart: RRR Abdomen: soft Extremities: other: (No edema) - Telemetry Telemetry Rhythm: SR, PACs - Labs Result Diagrams: 07/13/18 11:25 07/14/18 03:53 Troponin/CKMB CK-MB (CK-2) 2.6 ng/mL (0-6.6) 07/10/18 00:18 Troponin I 0.188 ng/mL (< 0.028) H 07/10/18 06:42 - Assessment/Plan 1. HTN urgency - stable with current med; will decrease Coreg from 12.5mg to 6.25mg BID for bradycardia; On Lisinopril 20mg qd and Norvasc 10mg qd; may start Hydralazine or Isosorbide 2. S/p syncopal episode - possible vesovagal; Cont. to monitor on tele 3. COPD - stable with NC; elevated WBC. managed by release of information clerk 4. Lt thyroid mass 5. AAA wtih hx of endovascular repair in 2015 6. Lt CEA in 2002 7. Mild Acute on Chronic Diastolic HF - Stable; on Lasix 20mg qd, Coreg 6.25mg BID, and Lisinopril 20mg qd; 8. Confusion possible 2/2 dementia. MAR reviewed * Echo on 07/10/2018 with EF 60-65%, ERA, mild MR and AR, trace TR, and mod- severely dilated LA Pt. seen and eval. by me. I agree with the A/P by the FORGE TENDER. He appears to be a little pre-renal. Adjust meds accordingly. Chest: exp. wheeze. RRR. gjm Review of Systems - Review of Systems Constitutional: reports: no symptoms reported EENTM: reports: no symptoms reported Respiratory: reports: no symptoms reported Cardiac (ROS): reports: no symptoms reported ABD/GI: reports: no symptoms reported : reports: no symptoms reported Musculoskeletal: reports: no symptoms reported Skin: reports: no symptoms reported
--- NOTE | 2018-07-14 11:31 | PDOC.PN ---
- Subjective Encounter Start Date: 07/14/18 Encounter Start Time: 11:30 Mr. Narvaez was seen today in follow-up of syncope. He does not have any complaints. - Objective Resuscitation Status - Order Detail: 07/10/18 02:23 Resuscitation Status Routine Resuscitation Status: FULL: Full Resuscitation MAR Reviewed: Yes Vital Signs & Weight: Vital Signs (12 hours) Temp Pulse Resp BP Pulse Ox 07/14/18 10:26 67 22 H 97 07/14/18 09:37 142/48 H 07/14/18 09:28 142/48 H 07/14/18 08:00 98.1 F 96 07/14/18 07:54 142/48 H 07/14/18 07:53 90 134/60 07/14/18 07:21 94 L 07/14/18 07:19 81 27 H 94 L 07/14/18 04:00 98.5 F 07/14/18 02:32 77 22 H 92 L 07/14/18 00:00 98.4 F Weight Weight 171 lb 8.314 oz Most Recent Monitor Data Heart Rate from ECG 73 NIBP 143/46 NIBP BP-Mean 78 Respiration from ECG 18 SpO2 93 I&O: 07/13/18 07/14/18 07/15/18 06:59 06:59 06:59 Intake Total 975 800 300 Output Total 1180 8369 934 Balance -205 -1165 -45 Result Diagrams: 07/13/18 11:25 07/14/18 03:53 Phys Exam - Physical Examination HEENT: PERRLA Respiratory: no wheezing, no rales, no rhonchi, clear to auscultation bilateral Cardiovascular: RRR, no significant murmur, no rub Gastrointestinal: soft, non-tender, no distention, positive bowel sounds Musculoskeletal: pulses present, edema present Dx/Plan (1) Syncope Code(s): R55 - SYNCOPE AND COLLAPSE Status: Acute (2) Hypertensive urgency Code(s): I16.0 - HYPERTENSIVE URGENCY Status: Acute (3) COPD (chronic obstructive pulmonary disease) Status: Chronic (4) Chronic diastolic heart failure Code(s): I50.32 - CHRONIC DIASTOLIC (CONGESTIVE) HEART FAILURE Status: Chronic - Plan * Syncope- this is felt to be vaso-vagal mediated * Hypertensive Urgency- his blood pressure has improved, and he is now off the Cardene drip * COPD- stable * Chronic diastolic heart failure- compensated.
[2018-07-14] MEDS: Atorvastatin Calcium 40 MG TAB PO SCH (20:10)
[2018-07-15 05:24] LABS: Anion Gap 11 mmol/L (10-20); BUN (Urea Nitrogen) 54 mg/dL (8.4-25.7); Calc. Creatinine Clearance 59 mL/min (70-130); Calcium 8.9 mg/dL (7.8-10.44); Carbon Dioxide 24 mmol/L (23-31); Chloride 107 mmol/L (98-107); Estimated GFR-MDRD 64; Glucose 141 mg/dL (83-110); Potassium 3.9 mmol/L (3.5-5.1); Sodium 138 mmol/L (136-145)
[2018-07-15] MEDS: Enoxaparin Sodium 40 MG/0.4 ML SYRINGE SC SCH (08:25)
[2018-07-15] MEDS: Carvedilol 6.25 MG TAB PO SCH ×2 (08:27→17:25)
[2018-07-15] MEDS: predniSONE 20 MG TAB PO SCH (08:28)
[2018-07-15] MEDS: Isosorbide Dinitrate 5 MG TAB PO SCH ×2 (08:28→20:01)
[2018-07-15] MEDS: Aspirin 325 mg Enteric Coated Tablet PO SCH (08:28)
[2018-07-15] MEDS: Amlodipine 5 MG TAB PO SCH (08:28)
--- NOTE | 2018-07-15 08:28 | PRG ---
DATE OF SERVICE: 07/15/2018 SUBJECTIVE: Kervin Narvaez remains in the ICU, much improved. OBJECTIVE: VITAL SIGNS: Pulse 84, blood pressure is elevated at 180/74, saturations are 96% on room air, and respirations 22. I's and O's have been negative. CHEST: Reveals no wheezing or crackles. CARDIAC: Normal S1 and S2. No gallops. ABDOMEN: No masses. IMPRESSION: 1. Congestive heart failure. 2. Azotemia. 3. Chronic obstructive pulmonary disease. 4. Asthma. PLAN: The patient is much improved. His renal function is resolved. Continue PT, supportive care. He can probably be transferred out of the ICU. Job ID: [id number]
[2018-07-15] MEDS: Lisinopril 20 MG TAB PO SCH ×2 (08:29→23:20)
--- NOTE | 2018-07-15 10:30 | PDOC.PN ---
- Subjective Encounter Start Date: 07/15/18 Encounter Start Time: 10:28 Mr. Narvaez was seen today in follow-up of Syncope. He does not have any complaints. He appears comfortable. He says he is awaiting for a place to stay. - Objective Resuscitation Status - Order Detail: 07/10/18 02:23 Resuscitation Status Routine Resuscitation Status: FULL: Full Resuscitation MAR Reviewed: Yes Vital Signs & Weight: Vital Signs (12 hours) Temp Pulse Resp BP Pulse Ox 07/15/18 08:29 186/74 H 07/15/18 08:28 85 186/74 H 07/15/18 08:27 186/74 H 07/15/18 07:10 98 07/15/18 07:07 56 L 25 H 98 07/15/18 04:00 97.2 F L 07/15/18 02:34 76 18 07/15/18 00:00 97.4 F L Weight Weight 171 lb 8.314 oz Most Recent Monitor Data Heart Rate from ECG 53 NIBP 174/69 NIBP BP-Mean 104 Respiration from ECG 10 SpO2 92 I&O: 07/14/18 07/15/18 07/16/18 06:59 06:59 06:59 Intake Total 800 1610 Output Total 1965 2285 Balance -1165 -675 Result Diagrams: 07/13/18 11:25 07/15/18 04:06 Phys Exam - Physical Examination HEENT: PERRLA Respiratory: no wheezing, no rales, no rhonchi, clear to auscultation bilateral Cardiovascular: RRR, no significant murmur, no rub Gastrointestinal: soft, non-tender, no distention, positive bowel sounds Musculoskeletal: pulses present, edema present trace pedal edema bilaterally Dx/Plan (1) Syncope Code(s): R55 - SYNCOPE AND COLLAPSE Status: Acute (2) Hypertensive urgency Code(s): I16.0 - HYPERTENSIVE URGENCY Status: Acute (3) COPD (chronic obstructive pulmonary disease) Status: Chronic (4) Chronic diastolic heart failure Code(s): I50.32 - CHRONIC DIASTOLIC (CONGESTIVE) HEART FAILURE Status: Chronic - Plan * Syncope- likely Vaso-vagal * Hypertension- blood pressure is still a bit elevated- will add scheduled hydralazine * COPD- improved * chronic diastolic heart failure- stable * ? deconditioned- will consult PT/OT and begin discharge planning.
--- NOTE | 2018-07-15 11:40 | PDOC.CTH ---
Cardiology Progress Note - Subjective The pt seen and examined. No overnight events. No cardiac complaints. No distress with RA. - Objective Vital Signs Temp Pulse Resp BP Pulse Ox 07/15/18 10:39 71 18 93 L 07/15/18 08:29 186/74 H 07/15/18 08:28 85 186/74 H 07/15/18 08:27 186/74 H 07/15/18 07:10 98 07/15/18 07:07 56 L 25 H 98 07/15/18 04:00 97.2 F L 07/15/18 02:34 76 18 07/15/18 00:00 97.4 F L Weight 171 lb 8.314 oz 07/14/18 07/15/18 07/16/18 06:59 06:59 06:59 Intake Total 800 1610 Output Total 1965 2285 Balance -1165 -675 - Physical Examination General/Neuro: alert & oriented x3 Neck: no JVD present Lungs: CTA (diminished at bases) Heart: RRR Abdomen: soft Extremities: other: (No edema) - Telemetry Telemetry Rhythm: SR - Labs Result Diagrams: 07/13/18 11:25 07/15/18 04:06 Troponin/CKMB CK-MB (CK-2) 2.6 ng/mL (0-6.6) 07/10/18 00:18 Troponin I 0.188 ng/mL (< 0.028) H 07/10/18 06:42 - Assessment/Plan 1. HTN urgency - Isosorbide dinitrate 10mg BID and Hydralazine 25mg TID were started from this AM; On Coreg 6.25mg BID, Lisinopril 20mg qd and Norvasc 10mg qd; 2. S/p syncopal episode - possible vesovagal; Cont. to monitor on tele 3. COPD - stable with NC; elevated WBC. managed by institutional nutrition consultant 4. Lt thyroid mass 5. AAA wtih hx of endovascular repair in 2015 6. Lt CEA in 2002 7. Mild Acute on Chronic Diastolic HF - Stable; on Lasix 20mg qd, Coreg 6.25mg BID, and Lisinopril 20mg qd; 8. Confusion possible 2/2 dementia. MAR reviewed * Echo on 07/10/2018 with EF 60-65%, ERA, mild MR and AR, trace TR, and mod- severely dilated LA Pt. seen and eval. b me. Less confused today. BP is still high. Added nitrates and will increase LEI-I. I agree with the A/P by the RIDDLER OPERATOR. Chest is clear and much improved over admission. RRR. gjm Review of Systems - Review of Systems Constitutional: reports: no symptoms reported EENTM: reports: no symptoms reported Respiratory: reports: no symptoms reported Cardiac (ROS): reports: no symptoms reported ABD/GI: reports: no symptoms reported : reports: no symptoms reported Musculoskeletal: reports: no symptoms reported
[2018-07-15] MEDS ORDERED: hydrALAZINE 25 MG TAB PO SCH (12:00)
[2018-07-15] MEDS: hydrALAZINE 25 MG TAB PO SCH ×2 (16:22→20:01)
[2018-07-15] MEDS: Atorvastatin Calcium 40 MG TAB PO SCH (20:00)
[2018-07-16 06:13] LABS: Anion Gap 10 mmol/L (10-20); BUN (Urea Nitrogen) 36 mg/dL (8.4-25.7); Calc. Creatinine Clearance 75 mL/min (70-130); Carbon Dioxide 26 mmol/L (23-31); Chloride 106 mmol/L (98-107); Estimated GFR-MDRD 84; Glucose 93 mg/dL (83-110); Potassium 3.8 mmol/L (3.5-5.1); Sodium 138 mmol/L (136-145)
[2018-07-16] MEDS: Amlodipine 5 MG TAB PO SCH (08:02)
[2018-07-16] MEDS: Isosorbide Dinitrate 5 MG TAB PO SCH ×2 (08:02→20:51)
[2018-07-16] MEDS: predniSONE 20 MG TAB PO SCH (08:02)
[2018-07-16] MEDS: Aspirin 325 mg Enteric Coated Tablet PO SCH (08:02)
[2018-07-16] MEDS: Lisinopril 20 MG TAB PO SCH ×2 (08:03→20:52)
[2018-07-16] MEDS: Enoxaparin Sodium 40 MG/0.4 ML SYRINGE SC SCH (08:03)
[2018-07-16] MEDS: hydrALAZINE 25 MG TAB PO SCH ×2 (08:03→15:53)
--- NOTE | 2018-07-16 08:13 | PRG ---
DATE OF SERVICE: 07/16/2018 SUBJECTIVE: This morning, he is awake, alert, responsive, much improved. OBJECTIVE: VITAL SIGNS: Saturations 96% on room air, respirations 15, pulse 71, blood pressure is elevated at 160/70. CHEST: Decreased breath sounds. No wheezing. CARDIAC: Normal S1, S2. No gallops. ABDOMEN: No masses. IMPRESSION AND PLAN: Chronic obstructive pulmonary disease, congestive heart failure, syncope, much improved. Continue antibiotics. Continue neb treatments, supportive care. Transferred out of the ICU. Job ID: [id number]
--- NOTE | 2018-07-16 08:24 | PDOC.CTH ---
Cardiology Progress Note - Subjective The pt seen and examined. No overnight events. No cardiac complaints. No distress with RA. - Objective Vital Signs Temp Pulse Resp BP Pulse Ox 07/16/18 08:03 71 178/62 H 07/16/18 08:02 71 178/62 H 07/16/18 08:00 98.2 F 07/16/18 07:52 96 07/16/18 07:51 71 15 96 07/16/18 07:32 98 07/16/18 04:00 98.3 F 07/16/18 02:18 65 19 93 L 07/15/18 23:20 161/53 H 07/15/18 22:10 80 24 H 94 L Weight 171 lb 8.314 oz 07/15/18 07/16/18 07/17/18 06:59 06:59 06:59 Intake Total 1610 1800 240 Output Total 2285 2480 135 Balance -132 -275 105 - Physical Examination Neck: no JVD present Lungs: CTA (diminished at bases) Heart: RRR Abdomen: soft Extremities: other: (No edema) - Telemetry Telemetry Rhythm: SR with PACs - Labs Result Diagrams: 07/16/18 09:18 07/16/18 04:17 Troponin/CKMB CK-MB (CK-2) 2.6 ng/mL (0-6.6) 07/10/18 00:18 Troponin I 0.188 ng/mL (< 0.028) H 07/10/18 06:42 - Assessment/Plan 1. HTN urgency - improving with current medication; 2. S/p syncopal episode - possible vesovagal; Cont. to monitor on tele 3. COPD - stable with RA; Managed by camp dining room attendant 4. Lt thyroid mass 5. AAA wtih hx of endovascular repair in 2015 6. Lt CEA in 2002 7. Mild Acute on Chronic Diastolic HF - Stable; on Lasix 20mg qd, Coreg 6.25mg BID, and Lisinopril 20mg BID; 8. Confusion possible 2/2 dementia. MAR reviewed * Echo on 07/10/2018 with EF 60-65%, ERA, mild MR and AR, trace TR, and mod- severely dilated LA Pt. seen and eval. by me. I agree with the A/P by the OPTIONS ADVISOR. He is more comfortable today. Chest clear. RRR. no edema. Cardiac status is stable. gjm Review of Systems - Review of Systems Constitutional: reports: no symptoms reported EENTM: reports: no symptoms reported Respiratory: reports: no symptoms reported Cardiac (ROS): reports: no symptoms reported ABD/GI: reports: no symptoms reported : reports: no symptoms reported Musculoskeletal: reports: no symptoms reported
[2018-07-16 09:41] LABS: #Eosinphils 0.1 thou/uL (0.0-0.7); #Lymphocytes 2.1 thou/uL (1.20-3.40); #Monocytes 1.5 thou/uL (0.11-0.59); #Neutrophils 10.4 thou/uL (1.40-6.50); %Basophils 0.1 % (0.0-1.0); %Eosinophils 0.4 % (0.0-10.0); %Lymphocytes 15.2 % (21.0-51.0); %Monocytes 10.6 % (0.0-10.0); %Neutrophils 73.8 % (42.0-75.0); Hemoglobin 10.8 g/dL (14.0-18.0); Mean Corpuscular HGB CONC 30.9 g/dL (32.0-36.0); Mean Corpuscular Hemoglobin 29.2 pg (27.0-31.0); Mean Corpuscular Volume 94.3 fL (78.0-98.0); Mean Platelet Volume 7.6 fL (7.4-10.4); Platelet Count 259 thou/uL (130-400); RBC Distribution Width 13.2 % (11.5-14.5); Red Blood Cell (RBC) Count 3.71 mill/uL (4.70-6.10); White Blood Cell (WBC) Count 14.1 thou/uL (4.8-10.8)
--- NOTE | 2018-07-16 12:01 | PDOC.PN ---
- Subjective Encounter Start Date: 07/16/18 Encounter Start Time: 11:59 Mr. Narvaez was seen today in follow-up of syncope. He does not have any complaints. He plans to return home after discharge and live with his brother, as he had been doing. - Objective Resuscitation Status - Order Detail: 07/10/18 02:23 Resuscitation Status Routine Resuscitation Status: FULL: Full Resuscitation MAR Reviewed: Yes Vital Signs & Weight: Vital Signs (12 hours) Temp Pulse Resp BP Pulse Ox 07/16/18 11:18 81 20 94 L 07/16/18 08:03 71 178/62 H 07/16/18 08:02 71 178/62 H 07/16/18 08:00 98.2 F 07/16/18 07:52 96 07/16/18 07:51 71 15 96 07/16/18 07:32 98 07/16/18 04:00 98.3 F 07/16/18 02:18 65 19 93 L Weight Weight 171 lb 8.314 oz Most Recent Monitor Data Heart Rate from ECG 72 NIBP 178/62 NIBP BP-Mean 100 Respiration from ECG 21 SpO2 97 I&O: 07/15/18 07/16/18 07/17/18 06:59 06:59 06:59 Intake Total 1610 1800 240 Output Total 2285 2480 185 Balance -675 -680 55 Result Diagrams: 07/16/18 09:18 07/16/18 04:17 Phys Exam - Physical Examination HEENT: PERRLA Respiratory: no wheezing, no rales, no rhonchi, clear to auscultation bilateral Cardiovascular: RRR, no significant murmur, no rub Gastrointestinal: soft, non-tender, no distention, positive bowel sounds Musculoskeletal: no edema, pulses present Dx/Plan (1) Syncope Code(s): R55 - SYNCOPE AND COLLAPSE Status: Acute (2) Hypertensive urgency Code(s): I16.0 - HYPERTENSIVE URGENCY Status: Acute (3) COPD (chronic obstructive pulmonary disease) Status: Chronic (4) Chronic diastolic heart failure Code(s): I50.32 - CHRONIC DIASTOLIC (CONGESTIVE) HEART FAILURE Status: Chronic - Plan * Syncope- felt to be vaso-vagal * HTN- blood pressure is still elevated, but this may take several weeks to see optimum improvement * COPD- stable * Chronic diastolic heart failure- compensated * Suspect he will be ready for discharge soon- will see how he does with PT and so as to anticipate his discharge needs
--- NOTE | 2018-07-16 16:41 | PQF ---
ELPIDIO CULVER TONI MD [id number] CLINICAL DOCUMENTATION IMPROVEMENT CLARIFICATION FORM: ICD-10 Updated PLEASE DO AN ADDENDUM TO THE PROGRESS NOTE WITH ANY DOCUMENTATION UPDATES OR ADDITIONS AND CARRY THROUGH TO DC SUMMARY. THANK YOU. DATE: 07/15/18 ATTN: DR. CLAYTON Please exercise your independent, professional judgment in responding to the clarification form. Clinical indicators are provided on the bottom of this form for your review Please check appropriate box(s): [ X ] Encephalopathy: Type: [ X ] Acute [ ] Subacute [ ] Chronic Etiology: [ X ] Metabolic [ ] Drug induced: [ ] Unspecified [ ] in the setting of underlying dementia [ ] Other (please specify) [ ] Transient Alteration of Awareness [ ] Other diagnosis [ ] Unable to determine In addition, please specify: Present on Admission (POA): [ ] Yes [X ] No [ ] Unable to determine For continuity of documentation, please document condition throughout progress notes and discharge summary. Thank You. CLINICAL INDICATORS - SIGNS / SYMPTOMS / LABS PROGRESS NOTE 07/13: "ENCEPHALOPATHY" NURSE NOTE 07/13: "PATIENT HAS INTERMITTENT CONFUSION THROUGHOUT THE NIGHT AND IN TO THIS MORNING." RISKS: ADVANCED AGE HYPERTENSION DEMENTIA TREATMENT: CARDENE GTT (07/10-07/12) IV HYDRALAZINE (07/15) HYDRALAZINE (.STARTED 07/15) ISOSORBIDE DINITRATE (STARTED 07/15) LISINOPRIL (07/13-PRESENT) THANK YOU, RESHMA (This form is maintained as a part of the permanent medical record) 2014 [employer]. All Rights Reserved MANAN [email or web address] Office: [phone] [facility]
[2018-07-16] MEDS ORDERED: Carvedilol 6.25 MG TAB PO SCH (17:00)
[2018-07-16] MEDS ORDERED: Acetaminophen 325 MG TAB PO PRN (20:08)
[2018-07-16] MEDS ORDERED: hydrALAZINE 20 MG/ML VIAL SLOW IVP PRN (20:09)
[2018-07-16] MEDS ORDERED: PROVENTIL INHALER 6.7 G (200 INHALATIONS) INH PRN (20:11)
[2018-07-16] MEDS ORDERED: Bacteriostatic Water 30 ML VIAL FS PRN (20:11)
[2018-07-16] MEDS: Atorvastatin Calcium 40 MG TAB PO SCH (20:53)
[2018-07-16] MEDS ORDERED: hydrALAZINE 25 MG TAB PO SCH (21:00)
[2018-07-17 05:23] LABS: Anion Gap 9 mmol/L (10-20); BUN (Urea Nitrogen) 27 mg/dL (8.4-25.7); Calc. Creatinine Clearance 75 mL/min (70-130); Calcium 8.6 mg/dL (7.8-10.44); Carbon Dioxide 27 mmol/L (23-31); Chloride 104 mmol/L (98-107); Estimated GFR-MDRD 84; Glucose 90 mg/dL (83-110); Potassium 3.6 mmol/L (3.5-5.1); Sodium 136 mmol/L (136-145)
[2018-07-17] MEDS: Amlodipine 10 MG TAB PO SCH (09:00)
[2018-07-17] MEDS: Carvedilol 6.25 MG TAB PO SCH ×2 (09:00→19:01)
[2018-07-17] MEDS: predniSONE 20 MG TAB PO SCH (09:00)
[2018-07-17] MEDS: hydrALAZINE 25 MG TAB PO SCH ×3 (09:01→21:17)
[2018-07-17] MEDS: Isosorbide Dinitrate 5 MG TAB PO SCH ×2 (09:01→21:17)
[2018-07-17] MEDS: Aspirin 325 mg Enteric Coated Tablet PO SCH (09:04)
[2018-07-17] MEDS: Lisinopril 20 MG TAB PO SCH ×2 (09:05→21:22)
[2018-07-17] MEDS: Enoxaparin Sodium 40 MG/0.4 ML SYRINGE SC SCH (10:26)
--- NOTE | 2018-07-17 10:50 | PDOC.PN ---
- Subjective Encounter Start Date: 07/17/18 Encounter Start Time: 10:48 Mr. Narvaez was seen today in follow-up of syncope. He does not have any complaint. His heart rate was noted to be a low this morning. He says he felt a bit tired when this occurred. - Objective Resuscitation Status - Order Detail: 07/10/18 02:23 Resuscitation Status Routine Resuscitation Status: FULL: Full Resuscitation MAR Reviewed: Yes Vital Signs & Weight: Vital Signs (12 hours) Temp Pulse Resp BP BP Pulse Ox 07/17/18 10:32 52 L 20 07/17/18 09:05 161/70 H 07/17/18 09:01 42 L 07/17/18 09:00 42 L 161/70 H 07/17/18 07:40 97.8 F 42 L 18 190/84 H 95 07/17/18 07:12 94 L 07/17/18 07:10 67 20 94 L 07/17/18 03:17 98 07/17/18 03:16 98 07/17/18 02:56 97.0 F L 60 23 H 131/61 97 07/17/18 00:00 98.5 F 62 16 164/72 H 93 L 07/16/18 23:05 94 L Weight Weight 171 lb 8.314 oz Most Recent Monitor Data Heart Rate from ECG 72 NIBP 178/62 NIBP BP-Mean 100 Respiration from ECG 21 SpO2 97 I&O: 07/16/18 07/17/18 07/18/18 06:59 06:59 06:59 Intake Total 1800 540 Output Total 2480 1285 Balance -680 -745 Result Diagrams: 07/16/18 09:18 07/17/18 04:26 Phys Exam - Physical Examination HEENT: PERRLA Respiratory: no wheezing, no rales, no rhonchi, clear to auscultation bilateral Cardiovascular: RRR, no significant murmur, no rub Gastrointestinal: soft, non-tender, no distention, positive bowel sounds Musculoskeletal: no edema, pulses present Dx/Plan (1) Bradycardia Code(s): R00.1 - BRADYCARDIA, UNSPECIFIED Status: Acute (2) Hypertension Code(s): I10 - ESSENTIAL (PRIMARY) HYPERTENSION Status: Chronic (3) Hypertensive urgency Code(s): I16.0 - HYPERTENSIVE URGENCY Status: Acute (4) COPD (chronic obstructive pulmonary disease) Status: Chronic (5) Chronic diastolic heart failure Code(s): I50.32 - CHRONIC DIASTOLIC (CONGESTIVE) HEART FAILURE Status: Chronic (6) Syncope Code(s): R55 - SYNCOPE AND COLLAPSE Status: Acute - Plan * Bradycardia- patient's heart rate dropped into the 40" this morning- will hold this morning's dose of Carvediolol, and may need to cut his dose back to 3.25 * HTN- blood pressure continues to be elevated- will increase the dose of Hydralazine to 50mg * Chronic diastolic heart failure- compensated * Likely home in a day or two * Will consult Case Management for a Home Health Evauation for disease management and PT/OT ( i am concerned he will need help with his medications, and would also benefit from home PT/OT for re-conditioning.
--- NOTE | 2018-07-17 18:34 | PRG ---
DATE OF SERVICE: 07/17/2018 SUBJECTIVE: Mr. Narvaez is in no distress. He says he is feeling better. OBJECTIVE: VITAL SIGNS: He is afebrile. Heart rate 64, respiratory rate 20, he is on room air, blood pressure is 190/84 this morning. LUNGS: Clear. HEART: Regular rhythm. ABDOMEN: Soft. LABORATORY DATA: Sodium 136, potassium 3.6, chloride 104, bicarb 27, BUN 27, and creatinine 0.87. IMPRESSION AND PLAN: 1. Status post syncope. His heart rates dropped into 40s once today. 2. Chronic obstructive pulmonary disease, clinically stable with no bronchospasm at this time. 3. History of cardiomyopathy. We will continue to follow the other physicians caring for him. He appears to be stable at this time. Job ID: [id number]
[2018-07-17] MEDS: Atorvastatin Calcium 40 MG TAB PO SCH (21:16)
[2018-07-18 06:01] LABS: Anion Gap 9 mmol/L (10-20); BUN (Urea Nitrogen) 25 mg/dL (8.4-25.7); Calc. Creatinine Clearance 75 mL/min (70-130); Calcium 8.7 mg/dL (7.8-10.44); Carbon Dioxide 26 mmol/L (23-31); Chloride 104 mmol/L (98-107); Estimated GFR-MDRD 84; Glucose 92 mg/dL (83-110); Potassium 3.5 mmol/L (3.5-5.1); Sodium 135 mmol/L (136-145)
[2018-07-18] MEDS: Amlodipine 10 MG TAB PO SCH (08:34)
[2018-07-18] MEDS: hydrALAZINE 25 MG TAB PO SCH ×3 (08:34→21:36)
[2018-07-18] MEDS: Lisinopril 20 MG TAB PO SCH ×2 (08:34→21:36)
[2018-07-18] MEDS: Enoxaparin Sodium 40 MG/0.4 ML SYRINGE SC SCH (08:35)
[2018-07-18] MEDS: Aspirin 325 mg Enteric Coated Tablet PO SCH (08:35)
[2018-07-18] MEDS: Isosorbide Dinitrate 5 MG TAB PO SCH ×2 (08:35→21:36)
[2018-07-18] MEDS: predniSONE 20 MG TAB PO SCH (08:35)
[2018-07-18] MEDS: Carvedilol 3.125 MG TAB PO SCH ×2 (09:37→17:08)
--- NOTE | 2018-07-18 10:11 | PDOC.PN ---
- Subjective Encounter Start Date: 07/18/18 Encounter Start Time: 10:09 Mr. Narvaez was seen today in follow-up of syncope and respiratory failure. He does not have any complaints. - Objective Resuscitation Status - Order Detail: 07/10/18 02:23 Resuscitation Status Routine Resuscitation Status: FULL: Full Resuscitation MAR Reviewed: Yes Vital Signs & Weight: Vital Signs (12 hours) Temp Pulse Resp BP Pulse Ox 07/18/18 07:34 97.9 F 64 13 167/73 H 96 07/18/18 06:56 97 07/18/18 06:55 71 20 97 07/18/18 03:34 98.7 F 59 L 18 146/67 H 93 L 07/18/18 02:38 92 L 07/17/18 23:36 92 L Weight Weight 162 lb 11.2 oz Most Recent Monitor Data Heart Rate from ECG 72 NIBP 178/62 NIBP BP-Mean 100 Respiration from ECG 21 SpO2 97 I&O: 07/17/18 07/18/18 07/19/18 06:59 06:59 06:59 Intake Total 540 350 Output Total 1285 300 Balance -745 50 Result Diagrams: 07/16/18 09:18 07/18/18 04:59 Phys Exam - Physical Examination HEENT: PERRLA Respiratory: no rales, wheezing present + faint wheeze Cardiovascular: RRR, no significant murmur, no rub Gastrointestinal: soft, non-tender, no distention, positive bowel sounds Musculoskeletal: no edema, pulses present Dx/Plan (1) Bradycardia Code(s): R00.1 - BRADYCARDIA, UNSPECIFIED Status: Acute (2) Hypertension Code(s): I10 - ESSENTIAL (PRIMARY) HYPERTENSION Status: Chronic (3) Hypertensive urgency Code(s): I16.0 - HYPERTENSIVE URGENCY Status: Resolved (4) COPD (chronic obstructive pulmonary disease) Status: Chronic (5) Chronic diastolic heart failure Code(s): I50.32 - CHRONIC DIASTOLIC (CONGESTIVE) HEART FAILURE Status: Chronic (6) Syncope Code(s): R55 - SYNCOPE AND COLLAPSE Status: Acute - Plan * Bradycardia- Carvediolol was not given yesterday. He had an episode of SVT, and some pauses. * Will need to await further recommendations from Cardiology- * COPD exacerbation- resolved. * HTN- blood pressure is a bit better * Chronic diastolic heart failure- compensated * Will hold off on discharge plans pending further cardiac evaluation
--- NOTE | 2018-07-18 14:42 | PRG ---
DATE OF SERVICE: 07/18/2018 SUBJECTIVE: Kervin Narvaez has no complaints. He says he is feeling a little bit stronger. Intake and outputs positive 50 mL. I am not sure if this is accurate since he only had 350 mL in and 300 out. OBJECTIVE: VITAL SIGNS: He is afebrile. Heart rate 67, respiratory rate is 13, oximetry is 94% on room air, and blood pressure 141/62. LUNGS: Clear. HEART: Regular rhythm. S1 and S2 are normal. ABDOMEN: Soft. EXTREMITIES: Without edema. IMPRESSION: 1. Status post syncope. Still having variability of his heart rates, down even into the 30s with no symptoms. 2. Chronic obstructive pulmonary disease, clinically stable with no bronchospasm at this time. 3. History of cardiomyopathy. Overall stable. 4. Intermittent bradycardia. Decisions about pacemaker placement will be made this week, I would assume. We will continue to follow with the other physicians caring for him. Job ID: [id number]
[2018-07-18] MEDS: Atorvastatin Calcium 40 MG TAB PO SCH (21:36)
--- NOTE | 2018-07-19 02:19 | PDOC.EVN ---
Event Note - Event Note Event Note: Patient having intermittent 2nd degree Type II heart block, asymptomatic. Pacemaker being considered in near future; I have instructed nursing to flag strips for cardiology to review in the am.
[2018-07-19 06:08] LABS: Anion Gap 9 mmol/L (10-20); BUN (Urea Nitrogen) 27 mg/dL (8.4-25.7); Calc. Creatinine Clearance 62 mL/min (70-130); Calcium 8.6 mg/dL (7.8-10.44); Carbon Dioxide 26 mmol/L (23-31); Chloride 103 mmol/L (98-107); Estimated GFR-MDRD 73; Glucose 100 mg/dL (83-110); Potassium 3.7 mmol/L (3.5-5.1); Sodium 134 mmol/L (136-145)
[2018-07-19] MEDS: Carvedilol 3.125 MG TAB PO SCH ×2 (08:12→16:51)
[2018-07-19] MEDS: Enoxaparin Sodium 40 MG/0.4 ML SYRINGE SC SCH (08:40)
[2018-07-19] MEDS: Aspirin 325 mg Enteric Coated Tablet PO SCH (08:40)
[2018-07-19] MEDS: Amlodipine 10 MG TAB PO SCH (08:40)
--- NOTE | 2018-07-19 08:40 | PDOC.CTH ---
Cardiology Progress Note - Subjective The pt seen and examined. No overnight events. No cardiac complaints. Episode of Bradycardia, hr 30s around 0630 this AM without any symptoms. - Objective Vital Signs Temp Pulse Resp BP BP Pulse Ox 07/19/18 07:49 98.1 F 58 L 13 177/74 H 94 L 07/19/18 07:03 92 L 07/19/18 07:02 57 L 16 92 L 07/19/18 04:23 99 07/19/18 03:50 98.5 F 60 18 143/78 H 100 07/19/18 03:32 94 L 07/19/18 00:00 62 174/74 H 07/18/18 22:59 94 L 07/18/18 21:36 61 142/63 H Weight 162 lb 11.2 oz 07/18/18 07/19/18 07/20/18 06:59 06:59 06:59 Intake Total 350 900 Output Total 300 925 Balance 50 -25 - Physical Examination General/Neuro: alert & oriented x3 Neck: no JVD present Lungs: CTA Heart: RRR Abdomen: soft Extremities: other: (No edema) - Telemetry Telemetry Rhythm: SR - Labs Result Diagrams: 07/16/18 09:18 07/19/18 05:21 Troponin/CKMB CK-MB (CK-2) 2.6 ng/mL (0-6.6) 07/10/18 00:18 Troponin I 0.188 ng/mL (< 0.028) H 07/10/18 06:42 - Assessment/Plan 1. HTN urgency - stable with current medication; 2. S/p syncopal episode - possible vesovagal; Cont. to monitor on tele 3. COPD - stable with RA; Managed by talent acquisition assistant 4. Lt thyroid mass 5. AAA wt hx of endovascular repair in 2015 6. Lt CEA in 2002 7. Mild Acute on Chronic Diastolic HF - Stable; on Lasix 20mg qd, Coreg 6.25mg BID, and Lisinopril 20mg BID; 8. Confusion possible 2/2 dementia. 9. Bradycardia - possible SSS or 2nd AVB type 2? 12 lead ECG this AM MAR reviewed * Echo on 07/10/2018 with EF 60-65%, ERA, mild MR and AR, trace TR, and mod- severely dilated LA pt. seen and eval. by me. I discussed this case with EP and the decision is to proceed with a pacemaker and then resume betablockers. I explained the procedure and risks to include Bleeding,infection,pneumo/hemothorax or tamponade , he agrees to proceed. gjm Review of Systems - Review of Systems Constitutional: reports: no symptoms reported EENTM: reports: no symptoms reported Respiratory: reports: no symptoms reported Cardiac (ROS): reports: no symptoms reported ABD/GI: reports: no symptoms reported : reports: no symptoms reported Musculoskeletal: reports: no symptoms reported
[2018-07-19] MEDS: Lisinopril 20 MG TAB PO SCH ×2 (08:41→21:20)
[2018-07-19] MEDS: predniSONE 20 MG TAB PO SCH (08:41)
[2018-07-19] MEDS: hydrALAZINE 25 MG TAB PO SCH ×3 (08:41→21:20)
[2018-07-19] MEDS: Isosorbide Dinitrate 5 MG TAB PO SCH ×2 (08:41→21:20)
--- NOTE | 2018-07-19 17:18 | PDOC.PN ---
- Subjective Encounter Start Date: 07/19/18 Encounter Start Time: 17:10 Subjective: f/u for SSS and plans for PM placement in am. Feels ok currently and -: no new complaints. - Objective Resuscitation Status - Order Detail: 07/10/18 02:23 Resuscitation Status Routine Resuscitation Status: FULL: Full Resuscitation MAR Reviewed: Yes Vital Signs & Weight: Vital Signs (12 hours) Temp Pulse Resp BP Pulse Ox 07/19/18 15:22 98.2 F 62 14 136/60 94 L 07/19/18 14:38 45 L 16 95 07/19/18 12:20 97.7 F 65 14 130/72 92 L 07/19/18 11:00 68 16 93 L 07/19/18 08:00 74 L 07/19/18 07:49 98.1 F 58 L 13 177/74 H 94 L 07/19/18 07:03 92 L 07/19/18 07:02 57 L 16 92 L Weight Weight 162 lb 11.2 oz Most Recent Monitor Data Heart Rate from ECG 72 NIBP 178/62 NIBP BP-Mean 100 Respiration from ECG 21 SpO2 97 I&O: 07/18/18 07/19/18 07/20/18 06:59 06:59 06:59 Intake Total 350 900 Output Total 300 925 Balance 50 -25 Result Diagrams: 07/16/18 09:18 07/19/18 05:21 Additional Labs: Laboratory Tests 07/11/18 07/12/18 07/13/18 05:25 08:47 11:25 WBC 11.1 H 16.3 H 22.6 H EKG Reviewed by me: Yes (Tele - Sinus nelida, 2nd degree AVB Type II) Phys Exam - Physical Examination Constitutional: NAD HEENT: PERRLA, sclera anicteric, oral pharynx no lesions Neck: no nodes, no JVD, supple, full ROM Respiratory: no wheezing, no rales, no rhonchi, clear to auscultation bilateral S1, S2 Cardiovascular: RRR, no significant murmur, no rub, gallop Gastrointestinal: soft, non-tender, no distention, positive bowel sounds Musculoskeletal: no edema, pulses present Neurological: normal sensation, moves all 4 limbs Skin: normal turgor, cap refill <2 seconds Dx/Plan (1) Sick sinus syndrome Code(s): I49.5 - SICK SINUS SYNDROME Status: Acute Comment: Plan for PM placement in am, avoid AV keren blocking agents, continous tele monitoring (2) Bradycardia Code(s): R00.1 - BRADYCARDIA, UNSPECIFIED Status: Chronic Comment: See above (3) Syncope Code(s): R55 - SYNCOPE AND COLLAPSE Status: Acute Comment: Likely cardiogenic and due to bradycardia, see #1 (4) COPD (chronic obstructive pulmonary disease) Status: Chronic Comment: Stable, continue Prednisone (5) Chronic diastolic heart failure Code(s): I50.32 - CHRONIC DIASTOLIC (CONGESTIVE) HEART FAILURE Status: Chronic Comment: Compensated (6) Hypertension Code(s): I10 - ESSENTIAL (PRIMARY) HYPERTENSION Status: Chronic Qualifiers: Hypertension type: essential hypertension Qualified Code(s): I10 - Essential (primary) hypertension Comment: Improved, continue current BP regimen - Plan continue antibiotics, PT/OT, dialysis social worker, DVT proph w/SCDs Stable currently -: Plan for PM placement in am -: Continue ASA, Lipitor, Amlodipine -: CM for HH options -: AM lab: BMP * .
--- NOTE | 2018-07-19 17:19 | EKG ---
Test Reason : Blood Pressure : / mmHG Vent. Rate : 065 BPM Atrial Rate : 122 BPM P-R Int : 000 ms QRS Dur : 114 ms QT Int : 456 ms P-R-T Axes : 000 -59 092 degrees QTc Int : 474 ms Probable wandering atrial pacemaker site Left anterior fascicular block Nonspecific ST and T wave abnormality Prolonged QT Abnormal ECG When compared with ECG of 10-JUL-2018 08:31, (Unconfirmed) Atrial fibrillation has replaced Sinus rhythm Confirmed by DR. Jimmy WEBB ([id number]) on 07/19/2018 5:19:43 PM Referred By: RAFITA Confirmed By:DR. Jimmy WEBB
[2018-07-19] MEDS: Atorvastatin Calcium 40 MG TAB PO SCH (21:20)
--- NOTE | 2018-07-19 21:27 | CON ---
DATE OF CONSULTATION: REASON FOR CONSULTATION: Bradycardia, nonsustained VT. HISTORY OF PRESENT ILLNESS: Mr. Narvaez is a pleasant 78-year-old gentleman with a history of hypertension, cerebrovascular disease, and dementia. He presented to [facility] on 07/10/2018, reporting he passed out. He sat down in a chair, his vision went black and for an unknown amount of time, he reports he had passed out. His brother was there and noticed he had passed out, so he called an ambulance, which brought him to the hospital for further evaluation. He does not recall any symptoms leading up to his syncopal episode such as heart racing or palpitations or chest pain. He denies feeling lightheaded or dizzy, nausea, vomiting, or recent diarrhea. He has not had similar episodes in the past to the best of his recollection. He also has a history of COPD. Cardiology was asked to evaluate for possible non-ST elevation MIs. He had some slightly elevated troponins. He has also had infrarenal AAA repair with Dr. Claros in the past. Throughout his stay, he has had fairly substantial documented bradycardia with heart rates into the 30s and 40s with second-degree Mobitz type 1 and nonsustained ventricular tachycardia. With his recent history of syncope and also pronounced bradycardia in addition to recent rhythm issues seen on telemetry, EP consultation was requested. REVIEW OF SYSTEMS: A 12-point review of systems is conducted and is negative except that listed above in the HPI. PAST MEDICAL HISTORY: 1. Hypertension. 2. Cerebrovascular disease. 3. Dementia. 4. COPD. 5. Infrarenal abdominal aortic aneurysm endovascular repair in 2015. 6. Left CEA in 2002. 7. Acute on chronic diastolic heart failure. 8. Bradycardia. ALLERGIES: NO KNOWN DRUG ALLERGIES. SOCIAL HISTORY: , six children. Smokes pack a day for the past 60 years. Denies alcohol or illicit drug use. FAMILY HISTORY: Positive for diabetes. Negative for sudden cardiac . HOME MEDICATIONS: Metoprolol tartrate 100 mg p.o. daily. OBJECTIVE: VITAL SIGNS: This morning, temperature 97.7, pulse 45, blood pressure 130/72, respirations 14, oxygen is 95% on room air. GENERAL: The patient is alert, oriented to person and place, poorly aware of situation, very poor historian. He is in no apparent distress, sitting comfortably on the edge of the bed during exam. HEENT: He is normocephalic and atraumatic. NECK: Supple without jugular venous distention. LUNGS: Clear to auscultation bilaterally. HEART: Rate is regular, but slow. PMI is nondisplaced. ABDOMEN: Soft and nontender without palpable masses. Hepatojugular reflux is negative. EXTREMITIES: Warm and dry to touch without clubbing, cyanosis, or edema. NEUROLOGIC: Nonfocal. Gait was not assessed. DATABASE: Laboratory: WBC 14.1, hemoglobin 10.8, hematocrit 35.0, and platelet count 259. Chemistry; potassium 3.7, sodium 134, creatinine 0.99, recent magnesium 1.8. BNP 2333 on 07/12/2018. Liver enzymes were within normal limits. Echocardiogram on 07/10/2018, ejection fraction 60% to 65%, left atrium moderately to severely dilated, mildly enlarged right atrium. Mild MR. Mild AR. Telemetry and EKG all tracings were personally reviewed. The patient is currently in sinus bradycardia, although review of the 12-lead from this morning and tracings over the night revealed Mobitz 1 second-degree AV block with frequent non- conducted PACs. Highly concerning for sick sinus syndrome and for sinus node and AV node disease. Also, there is a run of nonsustained ventricular tachycardia. IMPRESSION: 1. Syncope and collapse, unknown etiology, but likely bradycardia related. 2. Chronic beta-roberth therapy. 3. Second-degree AV block, Mobitz type 1 with frequent non-conducted PACs. 4. Likely sick sinus syndrome. 5. Chronic obstructive pulmonary disease. 6. Nonsustained ventricular tachycardia. 7. Normal LV function with preserved ejection fraction. 8. Confusion/dementia. PLAN AND RECOMMENDATIONS: Mr. Narvaez is a pleasant elderly gentleman, whom EP has been asked to evaluate for given his bradycardia, abnormal rhythms, and recent syncopal episode. Even with weaning his carvedilol to extremely low doses, Mr. Narvaez continues to have bradycardia episodes and overnight had a second-degree AV block Mobitz type 1. In addition to that, nonsustained ventricular tachycardia is seen. Ultimately, the recommendation is for treating his nonsustained ventricular tachycardia medically by resuming beta roberth therapy. In light of his recent likely bradycardic syncope and collapse in addition to high likelihood for sick sinus syndrome with poor sinus node and AV keren function. I feel he would benefit from permanent pacemaker implantation, which would allow continued treatment for his ventricular arrhythmias. This was discussed with the patient. This can be performed with Dr. Arzola, possibly tomorrow. Thank you for allowing me to participate in the care of this patient. If further EP management is needed please do not hesitate to contact me. Otherwise , I am signing off. Job ID: [id number] MTDD
[2018-07-20] MEDS ORDERED: CEFAZOLIN 2 GM in Premix Bag 1 BAG IVPB SCH (04:15)
[2018-07-20 05:37] LABS: Anion Gap 9 mmol/L (10-20); BUN (Urea Nitrogen) 27 mg/dL (8.4-25.7); Calc. Creatinine Clearance 55 mL/min (70-130); Calcium 9.1 mg/dL (7.8-10.44); Carbon Dioxide 28 mmol/L (23-31); Chloride 105 mmol/L (98-107); Estimated GFR-MDRD 64; Glucose 116 mg/dL (83-110); Potassium 3.7 mmol/L (3.5-5.1); Sodium 138 mmol/L (136-145)
[2018-07-20] MEDS ORDERED: Gentamicin 80 MG/2 ML VIAL ONE (07:25)
[2018-07-20] MEDS ORDERED: CEFAZOLIN 1 GM VIAL ONE (07:25)
[2018-07-20] MEDS: Carvedilol 3.125 MG TAB PO SCH (08:25)
[2018-07-20] MEDS: Enoxaparin Sodium 40 MG/0.4 ML SYRINGE SC SCH (08:25)
[2018-07-20] MEDS: Amlodipine 10 MG TAB PO SCH (08:29)
[2018-07-20] MEDS: predniSONE 20 MG TAB PO SCH (08:29)
[2018-07-20] MEDS: Aspirin 325 mg Enteric Coated Tablet PO SCH (08:29)
[2018-07-20] MEDS: Isosorbide Dinitrate 5 MG TAB PO SCH ×2 (08:29→19:28)
[2018-07-20] MEDS: hydrALAZINE 25 MG TAB PO SCH ×3 (08:30→19:28)
[2018-07-20] MEDS: Lisinopril 20 MG TAB PO SCH ×2 (08:30→19:28)
--- NOTE | 2018-07-20 10:03 | PRG ---
DATE OF SERVICE: 07/20/2018 SUBJECTIVE: Kervin Narvaez, 78-year-old gentleman, is much better, less short of breath, less anxiety. OBJECTIVE: VITAL SIGNS: His sats are 95% on room air temperature 97, pulse 69, blood pressure 132\74. CHEST: Decreased breath sounds. No wheezing. CARDIAC: Normal S1 and S2. No gallops. ABDOMEN: No masses. IMPRESSION: Chronic obstructive pulmonary disease, congestive heart failure, cerebrovascular accident, dementia. PLAN: He is scheduled for a pacemaker tomorrow. Pulmonary driscoll, he is much improved. Continue low dose prednisone. He is no longer wheezing. Job ID: [id number] [facility]
--- NOTE | 2018-07-20 10:30 | PDOC.CTH ---
Cardiology Progress Note - Subjective Pt. seen and eval. No new c/o's or events. - Objective Vital Signs Temp Pulse Resp BP Pulse Ox 07/20/18 07:31 97.9 F 69 13 169/74 H 97 07/20/18 06:49 96 07/20/18 06:47 69 16 96 07/20/18 04:00 97.6 F 68 18 142/66 H 95 Weight 162 lb 11.2 oz 07/19/18 07/20/18 07/21/18 06:59 06:59 06:59 Intake Total 900 900 Output Total 925 1325 Balance -25 425 - Physical Examination General/Neuro: alert & oriented x3 Neck: no JVD present Lungs: CTA Heart: RRR Abdomen: NT/ND, soft - Labs Result Diagrams: 07/16/18 09:18 07/20/18 05:00 Troponin/CKMB CK-MB (CK-2) 2.6 ng/mL (0-6.6) 07/10/18 00:18 Troponin I 0.188 ng/mL (< 0.028) H 07/10/18 06:42 - Assessment/Plan 1. HTN urgency - stable with current medication; 2. S/p syncopal episode - possible vesovagal; Cont. to monitor on tele 3. COPD - stable with RA; Managed by fox raiser 4. Lt thyroid mass 5. AAA wtih hx of endovascular repair in 2015 6. Lt CEA in 2002 7. Mild Acute on Chronic Diastolic HF - Stable; on Lasix 20mg qd, Coreg 6.25mg BID, and Lisinopril 20mg BID; 8. Confusion possible 2/2 dementia. 9. Bradycardia - SSS or 2nd AVB type 2? Tachy-nelida episodes. Plan for pacemaker insertion this AM. Thank you for EP seeing the pt. MAR reviewed * Echo on 07/10/2018 with EF 60-65%, ERA, mild MR and AR, trace TR, and mod- severely dilated LA
[2018-07-20] MEDS ORDERED: Acetaminophen/Codeine 30-300mg Tablet PO PRN (10:47)
--- NOTE | 2018-07-20 11:16 | RAD ---
Exam: Chest one view HISTORY:Respiratory distress. Status post cardiac device placement. Comparison: 07/12/2018 FINDINGS: Interval placement of left-sided transvenous pacemaker with lead positioned over the right atrium and right ventricle. Cardiac silhouette:Normal cardiac silhouette. Stable atherosclerosis and elongation of the aorta. Incompletely evaluated in a vascular stent projecting over the upper abdomen. Pulmonary vessels: Normal Costophrenic angles: Small right-sided effusion. LUNGS: Patchy opacities in the right infrahilar region, similar to the previous examination. Correlat e for infiltrate/edema. Pneumothorax: None Osseous abnormalities: None IMPRESSION: 1. Interval placement of left-sided transvenous pacemaker as above 2. Atherosclerosis and elongation aorta. 3. Patchy opacities in the right lower lobe possibly due to edema or infiltrate. Continued surveillan ce.
[2018-07-20] MEDS ORDERED: hydrALAZINE 20 MG/ML VIAL ONE (12:50)
[2018-07-20 13:41] VITALS: BMI 24.0
--- NOTE | 2018-07-20 15:58 | PDOC.PN ---
- Subjective Encounter Start Date: 07/20/18 Encounter Start Time: 15:50 Subjective: f/u for SSS and PM placement today. States he feels ok except for mild -: tenderness around PM insertion site. - Objective Resuscitation Status - Order Detail: 07/10/18 02:23 Resuscitation Status Routine Resuscitation Status: FULL: Full Resuscitation MAR Reviewed: Yes Vital Signs & Weight: Vital Signs (12 hours) Temp Pulse Resp BP Pulse Ox 07/20/18 15:11 98.1 F 78 14 130/58 L 98 07/20/18 14:42 63 16 97 07/20/18 11:27 96.9 F L 78 14 156/67 H 98 07/20/18 10:39 64 16 97 07/20/18 08:00 97 07/20/18 07:31 97.9 F 69 13 169/74 H 97 07/20/18 06:49 96 07/20/18 06:47 69 16 96 07/20/18 04:00 97.6 F 68 18 142/66 H 95 Weight Admit Weight 171 lb 8.314 oz Weight 162 lb 11.2 oz Most Recent Monitor Data Heart Rate from ECG 72 NIBP 178/62 NIBP BP-Mean 100 Respiration from ECG 21 SpO2 97 I&O: 07/19/18 07/20/18 07/21/18 06:59 06:59 06:59 Intake Total 900 900 Output Total 925 1325 Balance -25 -425 Result Diagrams: 07/16/18 09:18 07/20/18 05:00 Additional Labs: Laboratory Tests 07/11/18 07/12/18 07/13/18 05:25 08:47 11:25 WBC 11.1 H 16.3 H 22.6 H Radiology Reviewed by me: Yes (PCXR - PM in place in L upper chest) EKG Reviewed by me: Yes (Tele - Sinus with intermittent A-pacing) Phys Exam - Physical Examination Constitutional: NAD HEENT: PERRLA, sclera anicteric, oral pharynx no lesions Neck: no nodes, no JVD, supple, full ROM Respiratory: no wheezing, no rales, no rhonchi, clear to auscultation bilateral S1, S2 Cardiovascular: RRR, no significant murmur, no rub, gallop Gastrointestinal: soft, non-tender, no distention, positive bowel sounds Musculoskeletal: no edema, pulses present Neurological: normal sensation, moves all 4 limbs Psychiatric: A&O x 3 Skin: normal turgor, cap refill <2 seconds Deviation from normal: L upper chest wall with PM device in place, incision closed Dx/Plan (1) Sick sinus syndrome Code(s): I49.5 - SICK SINUS SYNDROME Status: Acute Comment: s/p PM placement this am, continous tele monitoring (2) Bradycardia Code(s): R00.1 - BRADYCARDIA, UNSPECIFIED Status: Chronic Comment: See #1, Coreg resumed, serial monitoring (3) Syncope Code(s): R55 - SYNCOPE AND COLLAPSE Status: Acute Comment: Likely cardiogenic and due to bradycardia, see #1 (4) COPD (chronic obstructive pulmonary disease) Status: Chronic Comment: Stable, continue Prednisone (5) Chronic diastolic heart failure Code(s): I50.32 - CHRONIC DIASTOLIC (CONGESTIVE) HEART FAILURE Status: Chronic Comment: Compensated, EF 60-65%, mod LAE (6) Hypertension Code(s): I10 - ESSENTIAL (PRIMARY) HYPERTENSION Status: Chronic Qualifiers: Hypertension type: essential hypertension Qualified Code(s): I10 - Essential (primary) hypertension Comment: Improved, continue current BP regimen - Plan continue antibiotics, PT/OT, social worker palliative care, out of bed/ambulate, DVT proph w/ SCDs Stable currently -: Continue Coreg, ASA, Lipitor -: OOB/ambulate -: CM for HH with PT options -: AM lab: BMP * Likely home in am
--- NOTE | 2018-07-20 17:09 | CCL ---
DATE OF PROCEDURE: 07/20/18 INDICATION: This is an 78-year-old patient with sick sinus syndrome with tachy/nelida was advised to undergo a xochitl l chamber pacemaker insertion. He was taken to the Cardiac mechanical shop laborer, prepped and draped in the steril e fashion where underwent the procedure today without difficulties or complications. He was implanted with a dual chamber pacemaker from [employer] with two screw-in leads, one in the atrium and one in t he ventricle. Pacemaker was set with the upper rate at 120 and the lower rate was set at 60. There we re no difficulties or complications encountered. The full dictated note can be found on the chart.
[2018-07-20] MEDS: Carvedilol 6.25 MG TAB PO SCH (17:44)
[2018-07-20] MEDS: Atorvastatin Calcium 40 MG TAB PO SCH (19:28)
[2018-07-21 06:41] LABS: Anion Gap 11 mmol/L (10-20); BUN (Urea Nitrogen) 28 mg/dL (8.4-25.7); Calc. Creatinine Clearance 53 mL/min (70-130); Calcium 9.2 mg/dL (7.8-10.44); Carbon Dioxide 26 mmol/L (23-31); Estimated GFR-MDRD 61; Glucose 129 mg/dL (83-110)
[2018-07-21 06:53] LABS: Chloride 103 mmol/L (98-107); Sodium 136 mmol/L (136-145)
[2018-07-21] MEDS ORDERED: predniSONE 5 MG TAB PO SCH (08:00)
[2018-07-21 08:57] LABS: #Basophils 0.1 thou/uL (0.0-0.2); #Eosinphils 0.1 thou/uL (0.0-0.7); #Lymphocytes 2.8 thou/uL (1.20-3.40); #Monocytes 1.3 thou/uL (0.11-0.59); #Neutrophils 8.5 thou/uL (1.40-6.50); %Basophils 0.8 % (0.0-1.0); %Eosinophils 0.8 % (0.0-10.0); %Lymphocytes 21.7 % (21.0-51.0); %Monocytes 10.4 % (0.0-10.0); %Neutrophils 66.2 % (42.0-75.0); Hemoglobin 11.3 g/dL (14.0-18.0); Mean Corpuscular HGB CONC 32.1 g/dL (32.0-36.0); Mean Corpuscular Volume 93.5 fL (78.0-98.0); Mean Platelet Volume 7.9 fL (7.4-10.4); Platelet Count 227 thou/uL (130-400); RBC Distribution Width 13.6 % (11.5-14.5); Red Blood Cell (RBC) Count 3.76 mill/uL (4.70-6.10); White Blood Cell (WBC) Count 12.9 thou/uL (4.8-10.8)
[2018-07-21] MEDS ORDERED: Carvedilol 6.25 MG TAB PO SCH ×2 (09:00→17:00)
--- NOTE | 2018-07-21 09:03 | PDOC.CTH ---
Cardiology Progress Note - Subjective The pt seen and examined. No overnight events. No cardiac complaints. He stated he should not raise his LUE over shoulder level. - Objective Vital Signs Temp Pulse Resp BP Pulse Ox 07/21/18 07:39 69 16 07/21/18 07:35 98.4 F 60 18 162/70 H 97 07/21/18 07:15 97 07/21/18 03:25 97.7 F 60 20 169/78 H 93 L 07/21/18 02:26 18 07/20/18 23:00 61 133/74 07/20/18 21:47 72 16 Admit Weight 171 lb 8.314 oz Weight 162 lb 11.2 oz 07/20/18 07/21/18 07/22/18 06:59 06:59 06:59 Intake Total 900 960 Output Total 1325 500 Balance -425 460 - Physical Examination General/Neuro: alert & oriented x3 Neck: no JVD present Lungs: CTA Heart: RRR Abdomen: soft Extremities: other: - Telemetry Telemetry Rhythm: AV paced - Labs Result Diagrams: 07/21/18 08:40 07/21/18 05:25 Troponin/CKMB CK-MB (CK-2) 2.6 ng/mL (0-6.6) 07/10/18 00:18 Troponin I 0.188 ng/mL (< 0.028) H 07/10/18 06:42 - Assessment/Plan 1. HTN urgency - Coreg was increased to 12.5mg from this AM. 2. S/p syncopal episode - possible vesovagal; Cont. to monitor on tele 3. COPD - stable with RA; Managed by help desk associate 4. Lt thyroid mass 5. AAA wtih hx of endovascular repair in 2015 6. Lt CEA in 2002 7. Mild Acute on Chronic Diastolic HF - Stable; on Lasix 20mg qd, Coreg 6.25mg BID, and Lisinopril 20mg BID; 8. Confusion possible 2/2 dementia. 9. Bradycardia 2/2 SSS - S/p Dual PM placement on 07/20/2018; MAR reviewed * Echo on 07/10/2018 with EF 60-65%, ERA, mild MR and AR, trace TR, and mod- severely dilated LA * From Cardiac standpoint, the pt is stable to d/c home. The pt will f[facility] Pt. seen and eval. by me. I agree with the a/P by the TIME PIECE REPAIRER. pacer site looks good. Chest clear. pacing. Review of Systems - Review of Systems Constitutional: reports: no symptoms reported EENTM: reports: no symptoms reported Respiratory: reports: no symptoms reported Cardiac (ROS): reports: no symptoms reported ABD/GI: reports: no symptoms reported
[2018-07-21] MEDS: Aspirin 325 mg Enteric Coated Tablet PO SCH (09:22)
[2018-07-21] MEDS: hydrALAZINE 25 MG TAB PO SCH (09:22)
[2018-07-21] MEDS: Amlodipine 10 MG TAB PO SCH (09:23)
[2018-07-21] MEDS: Lisinopril 20 MG TAB PO SCH (09:24)
[2018-07-21] MEDS: Enoxaparin Sodium 40 MG/0.4 ML SYRINGE SC SCH (09:24)
[2018-07-21] MEDS: Isosorbide Dinitrate 5 MG TAB PO SCH (09:24)
[2018-07-21] MEDS: Carvedilol 6.25 MG TAB PO SCH (09:26)
--- NOTE | 2018-07-21 10:05 | PRG ---
DATE OF SERVICE: 07/21/2018 SUBJECTIVE: Kervin Narvaez is better this morning. He is status post pacemaker. OBJECTIVE: VITAL SIGNS: Sats are 96% on room air, respiratory rate 18, temperature 98, pulse 60, blood pressure 160/70. CHEST: Decreased breath sounds. No wheezing. CARDIAC: Normal S1, S2. No gallops. ABDOMEN: No masses. IMAGING: X-ray yesterday post procedure shows small right-sided infiltrate. IMPRESSION: Chronic obstructive pulmonary disease, congestive heart failure, asthma, syncope, pacemaker inserted. PLAN: Disposition as per Cardiology, can probably be discharged home. Follow up in the office in about a month. Job ID: [id number]
[2018-07-21 14:24] VITALS: BP 158/72; TEMP 98
--- NOTE | 2018-07-21 17:52 | EKG ---
Test Reason : Blood Pressure : / mmHG Vent. Rate : 067 BPM Atrial Rate : 067 BPM P-R Int : 160 ms QRS Dur : 178 ms QT Int : 470 ms P-R-T Axes : 073 -85 086 degrees QTc Int : 496 ms AV pacemaker When compared with ECG of 19-JUL-2018 08:53, Previous ECG has undetermined rhythm, needs review Confirmed by DR. Jimmy WEBB ([id number]) on 07/21/2018 5:51:52 PM Referred By: REX Confirmed By:DR. Jimmy WEBB
--- NOTE | 2018-07-22 07:16 | DIS ---
DATE OF ADMISSION: 07/10/2018 DATE OF DISCHARGE: 07/21/2018 DISCHARGE DIAGNOSES: 1. Sick sinus syndrome status post dual-chamber pacemaker placement 07/20/2018. 2. Syncope secondary to sinus bradycardia and sick sinus syndrome. 3. Tachy-nelida syndrome. 4. Chronic obstructive pulmonary disease, stable. 5. Chronic diastolic congestive heart failure with preserved ejection fraction of 60% to 65%. 6. Hypertension, stable. CONSULTATIONS: Dr. Sandy and Dr. Rossi with Pulmonology Service. Dr. Mills with Electrophysiology Service. Dr. Carter with Cardiology Service. PERTINENT LAB AND X-RAY FINDINGS: Creatinine ranged between 0.87 and 1.55. Estimated GFR ranged between 43 and 84. BNP 2334. Troponin I ranged between 0.188 and 0.234. Total cholesterol 139, triglycerides 58, HDL 38, LDL 89. CBC showed a white blood cell count ranging between 10.0 and 22.6, hemoglobin ranged between 9.[address] of the brain without contrast dated 07/10/2018 showed no acute intracranial process. CT angiogram of the chest dated 07/10/2018 showed no evidence for pulmonary embolus. Portable chest x-ray dated 07/10/2018 showed no acute cardiopulmonary process. Carotid Doppler study dated 07/10/2018 showed moderate stenosis of bilateral internal carotid arteries 50% to 69%. 2D transthoracic echocardiogram dated 07/10/2018 showed ejection fraction of 60% to 65%. Moderate to severe left atrial enlargement. HOSPITAL COURSE: The patient was initially admitted to the telemetry unit after presenting status post syncopal episode. The patient underwent extensive evaluation including multiple imaging studies as well as telemetry monitoring. The patient was ruled out for pulmonary embolus and acute CVA. The patient was evaluated by the Cardiology Service after troponin I was elevated and concern for acute coronary syndrome. The patient was evaluated, however, current recommendations were to pursue 2D transthoracic echocardiogram, showing overall preserved ejection fraction in the 60% to 65% range. Telemetry monitoring did reveal tachy-nelida syndrome with heart rates in the 30s up to the one-teens. Due to patient's fluctuation and presentation with syncope, concern for sick sinus syndrome was entertained. The patient was deemed an appropriate candidate and underwent dual-chamber pacemaker placement on 07/20/2018. The patient tolerated the procedure well with telemetry monitoring showing a ventricular paced and A sensed rhythm in the 70s. The patient did receive general pulmonary supportive measures during the hospital course including prednisone and bronchodilator therapy. The patient maintained O2 saturations in the mid to upper 90% range on room air. The patient was initially held on his beta-roberth therapy due to sinus bradycardia as well as second-degree AV block type 1. However, Coreg was reintroduced after pacemaker placement at current levels of 12.5 mg b.i.d. Overall, the patient remained clinically stable during the hospital course. The patient was deemed appropriate candidate for ongoing home health services after discharge. I have examined the patient at the time of discharge and discussed followup instructions. The patient verbalizes understanding and agreement and ready for discharge on 07/21/2018. DISCHARGE MEDICATIONS: 1. Albuterol sulfate 2 puffs inhaled q.6 hours p.r.n. 2. Amlodipine 10 mg p.o. daily. 3. Lipitor 40 mg p.o. at bedtime. 4. Coreg 12.5 mg p.o. b.i.d. 5. Isosorbide dinitrate 10 mg p.o. b.i.d. 6. Levaquin 250 mg p.o. daily x5 days. 7. Lisinopril 20 mg p.o. b.i.d. 8. Prednisone 10 mg p.o. daily x5 days. 9. Aspirin 325 mg p.o. daily. FOLLOWUP: The patient will follow up with his primary care provider, Dr. Deep Vazquez within 7 days of discharge. The patient may follow up with Dr. Tavo Carter and to call her office for appointment time and date. CONDITION ON DISCHARGE: Stable. ACTIVITY: Ad chary. SPECIAL INSTRUCTIONS: The patient will be set up with [facility] after discharge. DIET: Heart healthy. CODE STATUS: Full. DISPOSITION: Home with [facility], 07/21/2018. TIME SPENT: Total time preparing and coordinating discharge, 35 minutes. Job ID: [id number]
== END 2018-07-21 14:43 | disposition home health service (06) | DRG 242 ==
LOC: ERS 23:54 → CCU 07-10 03:45 → 2NO 07-16 09:11 → UNDODISIN 07-16 18:46
PROVIDERS: ADMIT Internal Medicine; ATTEND Internal Medicine
PROC: 5A09357 Assistance with Respiratory Ventilation, Less than 24 Consecutive Hours, Continuous Positive Airway Pressure (ICD-10-PCS; 2018-07-11)
PROC: 0JH606Z Insertion of Pacemaker, Dual Chamber into Chest Subcutaneous Tissue and Fascia, Open Approach (ICD-10-PCS; principal; 2018-07-20)
PROC: 02HK3JZ Insertion of Pacemaker Lead into Right Ventricle, Percutaneous Approach (ICD-10-PCS; 2018-07-20)
PROC: 02H63JZ Insertion of Pacemaker Lead into Right Atrium, Percutaneous Approach (ICD-10-PCS; 2018-07-20)
DX: I49.5 Sick sinus syndrome (principal); I50.33 Acute on chronic diastolic (congestive) heart failure; G93.41 Metabolic encephalopathy; J96.90 Respiratory failure, unspecified, unspecified whether with hypoxia or hypercapnia; J44.1 Chronic obstructive pulmonary disease with (acute) exacerbation; E87.3 Alkalosis; I11.0 Hypertensive heart disease with heart failure; F03.90 Unspecified dementia, unspecified severity, without behavioral disturbance, psychotic disturbance, mood disturbance, and anxiety; I73.9 Peripheral vascular disease, unspecified; I16.0 Hypertensive urgency; I44.1 Atrioventricular block, second degree; F17.210 Nicotine dependence, cigarettes, uncomplicated; F41.9 Anxiety disorder, unspecified; N40.0 Benign prostatic hyperplasia without lower urinary tract symptoms; Z79.899 Other long term (current) drug therapy
CPT/HCPCS: 33208; 36415; 36416; 70450; 71045; 71275; 80048; 80053; 80061; 81003; 82553; 82805; 83735; 83880; 84484; 85025; 85379; 93005; 93010; 93306; 93880; 94640; 94660; 94760; 96361; 96365; C1785; C1898; J0360; J0690; J1580; J1650; J1940; J2920; J7050; J7512; J7620; Q9966

== ENCOUNTER 2019-02-02 09:23 | Emergency (ER) | payer MEDICARE, OTHER ==
[2019-02-02] MEDS ORDERED: Ibuprofen 200 MG TAB ONE ×2 (09:46→10:19)
--- NOTE | 2019-02-02 10:27 | CT ---
CT LUMBAR SPINE WITHOUT CONTRAST: Date: 02/02/19 INDICATION: History of mechanical fall. COMPARISON: CTA of abdomen and pelvis dated 09/17/15. FINDINGS: Again seen is an endovascular graft involving the aorta and both common iliac arteries. There are mix ed density exophytic lesions involving the left and right kidney, which on the prior examination appe ar to represent cysts. There is a small renovascular calcification involving the right mid kidney. No lymphadenopathy is evident. There is diffuse osteopenia. There is mild multilevel disc degenerative disease of the lumbar spine. Spinal alignment of the lateral projection appears within normal limits. No appreciable osseous centr al canal narrowing is evident. There is mild SI joint osteoarthrosis. No acute fracture is demonstrat ed. IMPRESSION: Mild spondylosis of lumbar spine. No acute fracture or subluxation demonstrated. There is a small scl erotic lesion in the right aspect of L4 which has been stable since 2016 and is likely reflective of a tiny atypical hemangioma. POS: [facility]
== END 2019-02-02 11:34 | disposition home or self-care (01) ==
LOC: ERS 09:23
DX: S39.012A Strain of muscle, fascia and tendon of lower back, initial encounter (principal); I10 Essential (primary) hypertension; F17.210 Nicotine dependence, cigarettes, uncomplicated; W19.XXXA Unspecified fall, initial encounter
CPT/HCPCS: 72131